=== PATIENT | female | born 1980 | race Caucasian/White ===

== ENCOUNTER → 2018-04-27 10:13 | Outpatient (CLI) | payer BC, SELFPAY ==
[2018-05-01 15:52] LABS: AFP 19.4 ng/mL; Cigarette smoking status non-smoker; GA used in risk estimate Dates estimate; IVF Pregnancy No; Initial or repeat testing Initial testing; Insulin dependent diabetes No; Maternal Weight 268 lbs; Number of Fetuses 1; Physician Phone Number 802-748-7300; Prev Pregnancy w/NTD No; RECOMMENDED FOLLOW UP None.; Results Summary Normal risk
== END ==
PROVIDERS: PCP Family Medicine; Visit Provider Advanced Practice Midwife
DX: Z34.82 Encounter for supervision of other normal pregnancy, second trimester (principal); Z13.79 Encounter for other screening for genetic and chromosomal anomalies
CPT/HCPCS: 36415; 82105

== ENCOUNTER → 2018-04-27 10:15 | Outpatient (CLI) | payer BC, SELFPAY | PROVIDERS: PCP Advanced Practice Midwife; Visit Provider Advanced Practice Midwife | DX: O09.522 Supervision of elderly multigravida, second trimester (principal) ==

== ENCOUNTER 2018-07-20 15:22 | Outpatient (CLI) | payer BC, SELFPAY ==
[2018-07-20 15:59] LABS: HCT 33.3 % (36.0-46.0); HGB 10.9 g/dL (12.0-15.5); Mean Corp. HGB Concentration 32.7 g/dL (32.0-36.0); Mean Corpuscular Hemoglobin 28.8 pg (27.0-33.0); Mean Corpuscular Volume 88.1 fL (80-95); Platelet Count 374 x1000/uL (130-400); RBC 3.78 m/cumm (4.00-5.20); RBC Distribution Width 13.8 % (11.7-14.6)
--- NOTE | 2018-07-24 16:55 | DIABASSESS_ITS ---
email correspondence: 2017 fasting 1 hour B 1 hour L 1 hour S 07/16 77 87 97 128@1.5hr 07/17 94 91 102 134 07/18 Other meter 88 92 108@2hr 09/18 71 Classroom 109@2h 131 07/20 71 Classroom 129 133 07/21 80 64@2hr 126 112 07/22 71 71 85@2hr 106@2hr
== END 2018-07-20 15:42 ==
PROVIDERS: Visit Provider Advanced Practice Midwife
DX: Z34.91 Encounter for supervision of normal pregnancy, unspecified, first trimester (principal)
CPT/HCPCS: 36415; 85027

== ENCOUNTER 2018-09-13 01:16 | Outpatient (CLI) | payer BC, SELFPAY ==
--- NOTE | 2018-09-13 09:01 | DI.US_ITS ---
Many abnormalities cannot be diagnosed. A normal exam does not exclude a congenital anomaly. Radiology No. LMP: Exam Date: 09/13/18 [facility] 8 wks days on 03/01/18 EDC ([facility]) 10/11/18 Confirmed: HISTORY: varsha, efw, gestational diabetes PREDICTED GESTATIONAL AGE NUMBER 36.1 weeks with a range of 35.1 week to 37.1 weeks. 1 Determined by__X_1STUS___LMP___HISTORY Info. pertaining to fetus # PLACENTA PRESENTATION Grade I-II Cephalic__X_ Anterior___Posterior___X Breech____ Right__X___ Left Transverse(head right___ Fundal___Low-lying___Previa___ Transverse(head left___ Varying BIOMETRY AMNIOTIC FLUID BPD: 84 mm 34 weeks Normal HC: 321 mm 36.2 weeks AC: 321 mm 36 weeks FL: 70 mm 36 weeks AMNIOTIC FLUID INDEX >26 WK CRL: mm weeks Cisterna Magna: mm CI: 78 RUQ:___3.9___LUQ__3.2 Cerebellum: cm EFW: 2770 grams 45th Percentile RLQ:__2.5____LLQ___2.0____ Total:___11.6 cms Composite AGE= 35.4 wks EDC by US____10/14/18 BIOPHYSICAL PROFILE ANATOMY IDENTIFIED SCORE 0/2 Heart: 4-Chamber___Rate:BPM_152____ LVOT: RVOT: Amniotic Fluid(>2cms)____ Stomach: Kidneys: Respirations (>30 secs) Bladder: Post. Fossa: Body Flex/Extension 3 vessel cord: Ventricles: cord insertion: Lips:____ Extremity Flex/Extension spinal morphology: Nose: Total Score= Palate: NS=not seen The study was carried out according to the usual protocol. Please see the OB ultrasound worksheet for complete details.
== END 2018-09-13 01:36 ==
PROVIDERS: PCP Internal Medicine Sleep Medicine; Visit Provider Advanced Practice Midwife
DX: O24.419 Gestational diabetes mellitus in pregnancy, unspecified control (principal); Z34.93 Encounter for supervision of normal pregnancy, unspecified, third trimester
CPT/HCPCS: 76816

== ENCOUNTER 2018-09-13 07:45 | Outpatient (CLI) | payer BC, SELFPAY | END 2018-09-13 08:05 | PROVIDERS: PCP Internal Medicine Sleep Medicine; Visit Provider Advanced Practice Midwife | DX: O24.419 Gestational diabetes mellitus in pregnancy, unspecified control (principal); Z3A.36 36 weeks gestation of pregnancy; O09.523 Supervision of elderly multigravida, third trimester | CPT/HCPCS: 59025 ==

== ENCOUNTER 2018-09-13 13:53 | Outpatient (REF) | payer BC, SELFPAY | END 2018-09-13 14:13 | LOC: LBN 13:53 | PROVIDERS: PCP Internal Medicine Sleep Medicine; Visit Provider Advanced Practice Midwife | DX: Z34.93 Encounter for supervision of normal pregnancy, unspecified, third trimester (principal); Z36.85 Encounter for antenatal screening for Streptococcus B | CPT/HCPCS: 87081 ==

== ENCOUNTER 2018-09-17 11:00 | Outpatient (CLI) | payer BC, SELFPAY | END 2018-09-17 11:20 | PROVIDERS: PCP Internal Medicine Sleep Medicine; Visit Provider Obstetrics & Gynecology Gynecology | DX: O24.415 Gestational diabetes mellitus in pregnancy, controlled by oral hypoglycemic drugs (principal); Z3A.36 36 weeks gestation of pregnancy; O09.523 Supervision of elderly multigravida, third trimester | CPT/HCPCS: 59025 ==

== ENCOUNTER 2018-09-20 08:09 | Outpatient (CLI) | payer BC, SELFPAY | END 2018-09-20 08:29 | PROVIDERS: PCP Internal Medicine Sleep Medicine; Visit Provider Advanced Practice Midwife | DX: O24.419 Gestational diabetes mellitus in pregnancy, unspecified control (principal); Z3A.37 37 weeks gestation of pregnancy | CPT/HCPCS: 59025 ==

== ENCOUNTER 2018-09-24 08:00 | Outpatient (CLI) | payer BC, SELFPAY | END 2018-09-24 08:20 | PROVIDERS: PCP Internal Medicine Sleep Medicine; Visit Provider Advanced Practice Midwife | DX: O24.419 Gestational diabetes mellitus in pregnancy, unspecified control (principal) | CPT/HCPCS: 59025 ==

== ENCOUNTER 2018-09-27 09:49 | Outpatient (CLI) | payer BC, SELFPAY | END 2018-09-27 10:09 | PROVIDERS: PCP Internal Medicine Sleep Medicine; Visit Provider Advanced Practice Midwife | DX: O24.419 Gestational diabetes mellitus in pregnancy, unspecified control (principal); Z3A.38 38 weeks gestation of pregnancy | CPT/HCPCS: 59025 ==

== ENCOUNTER 2018-10-01 13:05 | Outpatient (CLI) | payer BC, SELFPAY | END 2018-10-01 13:25 | PROVIDERS: PCP Internal Medicine Sleep Medicine; Visit Provider Obstetrics & Gynecology | DX: O24.419 Gestational diabetes mellitus in pregnancy, unspecified control (principal); Z3A.38 38 weeks gestation of pregnancy | CPT/HCPCS: 59025 ==

== ENCOUNTER 2018-10-05 16:50 | Inpatient (IN) | payer BC, SELFPAY ==
[2018-10-05 19:53] LABS: HGB 11.2 g/dL (12.0-15.5); Mean Corp. HGB Concentration 32.9 g/dL (32.0-36.0); Mean Corpuscular Hemoglobin 28.5 pg (27.0-33.0); Mean Corpuscular Volume 86.5 fL (80-95); Mean Platelet Volume 10.6 fL (8.0-11.0); Platelet Count 363 x1000/uL (130-400); RBC 3.93 m/cumm (4.00-5.20); RBC Distribution Width 14.8 % (11.7-14.6); White Blood Cell Count 12.57 k/cumm (4.4-10.8)
[2018-10-05] MEDS: Zolpidem 10 MG TAB PO (21:12)
[2018-10-06] MEDS: Normal Saline Flush 10 ML SYR IVP ×2 (06:43→13:14)
[2018-10-06] MEDS: glyBURIDE 2.5 MG TAB PO (06:43)
[2018-10-06] MEDS: buPROPion-XL 150 MG TABCR PO (08:06)
[2018-10-06] MEDS: Hamamelis Leaf/Glycerin 100 EACH BOX PR (20:54)
[2018-10-07] MEDS: Acetaminophen 325 MG TAB 650 MG PO (06:21)
[2018-10-07 08:31] LABS: HCT 34.2 % (36.0-46.0); HGB 11.2 g/dL (12.0-15.5); Mean Corp. HGB Concentration 32.7 g/dL (32.0-36.0); Mean Corpuscular Hemoglobin 28.6 pg (27.0-33.0); Mean Corpuscular Volume 87.2 fL (80-95); Mean Platelet Volume 10.7 fL (8.0-11.0); Platelet Count 318 x1000/uL (130-400); RBC 3.92 m/cumm (4.00-5.20); White Blood Cell Count 13.77 k/cumm (4.4-10.8)
[2018-10-07] MEDS: buPROPion-XL 150 MG TABCR PO (09:21)
[2018-10-08] MEDS: buPROPion-XL 150 MG TABCR PO (08:08)
== END 2018-10-08 13:40 | disposition home or self-care (01) | DRG 807 ==
PROVIDERS: Admitting Provider Advanced Practice Midwife; PCP Internal Medicine Sleep Medicine; Visit Provider Advanced Practice Midwife
DX: O24.425 Gestational diabetes mellitus in childbirth, controlled by oral hypoglycemic drugs (principal); Z37.0 Single live birth; O69.81X0 Labor and delivery complicated by cord around neck, without compression, not applicable or unspecified; Z3A.39 39 weeks gestation of pregnancy; O99.824 Streptococcus B carrier state complicating childbirth; O99.214 Obesity complicating childbirth; E66.9 Obesity, unspecified; O99.344 Other mental disorders complicating childbirth; F41.8 Other specified anxiety disorders
CPT/HCPCS: 36415; 85027; 86850; 86900; 86901; J2540; J3490

== ENCOUNTER 2018-11-20 07:48 | Outpatient (CLI) | payer BC, SELFPAY | END 2018-11-20 08:08 | PROVIDERS: PCP Internal Medicine Sleep Medicine; Visit Provider Advanced Practice Midwife | DX: O24.419 Gestational diabetes mellitus in pregnancy, unspecified control (principal); E66.9 Obesity, unspecified | CPT/HCPCS: 36415; 82951; 83036 ==

== ENCOUNTER 2018-12-03 16:03 | Outpatient (REF) | payer BC, SELFPAY ==
[2018-12-05 15:30] LABS: Chlamydia Result Negative; GC Result Negative; Specimen Description CERVIX
== END 2018-12-03 16:23 ==
LOC: LBN 16:03
PROVIDERS: PCP Internal Medicine Sleep Medicine; Visit Provider Advanced Practice Midwife
DX: Z11.3 Encounter for screening for infections with a predominantly sexual mode of transmission (principal); Z30.9 Encounter for contraceptive management, unspecified
CPT/HCPCS: 87491; 87591

== ENCOUNTER 2020-12-09 04:30 | Outpatient (CLI) | payer BC, SELFPAY ==
[2020-12-09 07:54] LABS: Abs Immature Grans 0.01 10^3/uL (0.0-0.06); Absolute Basophil Count 0.05 10^3/uL (0.0-0.2); Absolute Eosinophil Count 0.11 10^3/uL (0.0-0.7); Absolute Lymphocyte Count 2.26 10^3/uL (1.2-3.4); Absolute Monocyte Count 0.48 10^3/uL (0.1-0.8); Absolute Neutrophil Count 4.08 10^3/uL (1.2-6.7); Basophils % 0.7; Eosinophils % 1.6; HCT 37.8 % (36.0-46.0); HGB 12.5 g/dL (11.2-15.7); Immature Grans % 0.1; Lymphocytes % 32.3; MCH 28.5 pg (27.0-33.0); MCHC 33.1 % (32.0-36.0); MCV 86.3 fL (80-95); MPV 9.3 fL (8.0-11.0); Monocytes % 6.9; Neutrophils % 58.4; Nucleated RBC 0 %; Platelet Count 360 10^3/uL (130-400); RBC 4.38 10^6/uL (3.93-5.22); RDW 13.1 % (11.7-14.6); RDW-SD 41.1 fL; WBC 6.99 10^3/uL (4.4-10.8)
[2020-12-09 08:04] LABS: Hemoglobin A1C 5.7 % (<5.7)
[2020-12-09 09:08] LABS: ALT 17 U/L (14-59); AST 11 U/L (15-37); Albumin 3.3 g/dL (3.4-5.0); Alkaline Phosphatase 82 U/L (46-116); Anion Gap 8.6 mmol/L (3-11); BUN 12 mg/dL (7-18); Bilirubin, Total 0.6 mg/dL (0.2-1.0); CO2 25.4 mmol/L (21.0-32.0); CREATININE 0.8 mg/dL (0.55-1.02); Calcium 8.4 mg/dL (8.5-10.1); Calculated LDL 82 mg/dL (<100); Chloride 105 mmol/L (98-107); Cholesterol 139 mg/dL (<200); Glucose 100 mg/dL (74-106); HDL Cholesterol 42 mg/dL (40-60); Potassium 4.2 mmol/L (3.5-5.1); Sodium 139 mmol/L (136-145); TSH (W/Ref FT4) 0.86 uIU/mL (0.36-3.74); Total Protein 7.3 g/dL (6.4-8.2); Triglyceride 75 mg/dL (<150)
== END 2020-12-09 04:31 | disposition home or self-care (01) ==
LOC: LBO 04:30
PROVIDERS: PCP Internal Medicine Sleep Medicine; Visit Provider Family Medicine
DX: F41.9 Anxiety disorder, unspecified (principal); F32.9 Major depressive disorder, single episode, unspecified; R73.02 Impaired glucose tolerance (oral); Z13.220 Encounter for screening for lipoid disorders
CPT/HCPCS: 36415; 80053; 80061; 83036; 84443; 85025

== ENCOUNTER 2022-04-21 16:05 | Outpatient (REF) | payer BC, SELFPAY ==
--- OUTSIDE RECORDS SUMMARY | 2022-04-21 16:10 | XMS_ITS | Encounter Summary ---
:1980 [place] [address] Care Team Providers Name Role Phone Greg Islas MD Primary Care Provider Reason for Visit Reason Onset Date Comments Results 03/30/2016 [place] Encounter Details Date Type Department Care Team Description 03/30/2016 Telephone Obstetrics and Gynecology Federica Sage, Results ([place]) at [facility] [place] [address] OBSTETRICS & [phone] GYNECOLOGY [place], [place] 0[address] (Wo rk) Social History Tobacco Use Types Packs/Day Years Used Date Never Assessed Sex Assigned at Date Recorded Not on file documented as of this encounter Miscellaneous Notes Telephone Encounter - Evelina Sage, MS - 03/30/2016 2:38 PM EDT Vonda was informed of the following are the results from her [place] test. This is a non-invasive test for aneuploidy that analyzes cell- free DNA in maternal blood. Based on a risk cut-off of 1/100 (1%), the detection rate for trisomy 21 is greater than 99%, trisomy 18 97.4% and trisomy 13 is 93.8%. Result: Trisomy 21 Low Risk less than 1/10,000 Trisomy 18 Low Risk less than 1/10,000 Trisomy 13 Low Risk less than 1/10,000 Testing via amniocentesis is required for accurate diagnosis. Kalee was comfortable with these results and understands their limitations. documented in this encounter Plan of Treatment Not on filedocumented as of this encounter Visit Diagnoses Not on filedocumented in this encounter Care Teams Heavy Mobile Equipment Operator Relationship Specialty Start Date End Date Greg Islas MD PCP - General Family Medicine 03/10/16 05/02/18 79 [address] IQBAL, [facility] [address] [place] [id number] documented as of this encounter
--- OUTSIDE RECORDS SUMMARY | 2022-04-21 16:10 | XMS_ITS | Encounter Summary ---
:1980 [place] [address] Care Team Providers Name Role Phone None Primary Care Provider Unavailable Encounter Details Date Type Department Care Team Description 07/20/2018 Hospital Encounter Non-Invasive PschirrHalima marks Insulin c ontrolled Cardiology Lab Josie Rubio MD gestational diabetes [facility] MEDICAL mellitus (GDM) in Hospital CENTER [facility] OBSTETRICS & [facility] [place] [id number] [phone] Social History Tobacco Use Types Packs/Day Years Used Date Never Smoker Smokeless Tobacco: Never Used Sex Assigned at Date Recorded Not on file documented as of this encounter Medications at Time of Discharge Medication Sig Dispensed Refills Start Date End Date FREESTYLE LITE 0 05/18/2018 STRIPSIndications: Insulin controlled gestational diabetes mellitus (GDM) in second trimester FREESTYLE LITE METER 0 03/09/2018 KitIndications: Insulin controlled gestational diabetes mellitus (GDM) in second trimester glyBURIDE (DIABETA) 2.5 mg 0 8 TabletIndications: Insulin controlled gestational diabetes mellitus (GDM) in second trimester FREESTYLE LANCETS 28 gauge 0 8 MiscIndications: Insulin controlled gestational diabetes mellitus (GDM) in second trimester pantoprazole (PROTONIX) 20 mg 0 2017 Tablet, Delayed Release (E.C.)Indications: Insulin controlled gestational diabetes mellitus (GDM) in second trimester 95-iron 0 02/02/2016 gtv-fzbfi-eeb ( + DHA) 28 mg iron-800 mcg-200 mg Combo PackIndications: Insulin controlled gestational diabetes mellitus (GDM) in second trimester ibuprofen (ADVIL;MOTRIN) 800 Three times a day 0 04/05/2013 mg TabletIndications: Insulin controlled gestational diabetes mellitus (GDM) in second trimester magnesium oxide (MAG-OX) 400 Daily 0 016 mg TabletIndications: Insulin controlled gestational diabetes mellitus (GDM) in second trimester vitamin B complex vit C no.3 Daily 0 016 (VITAMIN B COMP AND C NO.3 ORAL)Indications: Insulin controlled gestational diabetes mellitus (GDM) in second trimester documented as of this encounter Plan of Treatment Not on filedocumented as of this encounter Procedures Procedure Name Priority Date/Time Associated Comments Diagnosis ECHOCARDIOGRAM Routine 07/20/2018 12:09 Insulin controll ed Results for this PRF PM EDT gestational procedure are i n diabetes mellitus the result s (GDM) in second section. trimester documented in this encounter Results ECHOCARDIOGRAM PRF (07/20/2018 12:09 PM EDT) Specimen (Source) Anatomical Location Collection Method / Collectio n Time Received Time / Laterality Volume 07/20/2018 Narrative [email or web address] - 07/20/2018 12:42 PM ED T Procedure: ?Pediatric Echocardiogram Patient: ?SCAVITTO VONDA ? (Age): 1980(37y) ? Med Rec#: ? [id number] ?Sex: ?F ? Site Loc: ? [facility] ?Ht / Wt: ??(cm)/ (kg) ? Pt. Loc: ?Echo Lab ? Study Date: ?? 07/20/2018 ?Pt. Type: Study Quality: ? Referring: Halima HOOVER REBECCA Reading: Pradeep Gloria KikeAlexis ([id number]) Diagnosis: *Gestational diabetes mellitus in pregn yasmine, insulin controlled (O24.414) BP: ? / SUMMARY: 1. A echocardiogram was performed at 28 weeks 1 days gestation (CHERI: 10/11/2018) due to maternal diabete s. Fair quality images were obtained. ??The fetus is in vertex posit ion. ?? 2. Levocardia with normal segmental and conotruncal anatomy {S,D,S}. ?? 3. Valve structure and function appear n ormal. 4. Normal chamber dimensions, myocardial appearance, wall thickness, ventricular systolic function. 5. Normal heart rate (142 bpm). No rmal mechanical IL interval (116 ms). The heart rhythm was regular throug hout. 6. No cardiac structural abnormalities w ere identified. ?? 7. No hydrops. 8. No specific or [facility] is required on this basis of this study. 9. The limitations of echocardiogr aphy include the inability to diagnose patent ductus arteriosus, some atrial and ventricular septal defects, minor valve abnormalities and c oarctation. FINDINGS: ? Venous Connections ?There are normal systemic venous c onnections, with the superior and inferior vena cavae returning to the rig ht atrium. Normal spectral Doppler patterns in umbilical vein, duct us venosus, ductus arteriosus, and umbilical artery. ?At least one pulmonary vein from e ach side enters the left atrium. No pulmonary venous anomalies are detect ed. ?? Atrial Septum ?There is a patent foramen ovale (P FO). ?There is qujki-gf-kgsp shunting ac ross the patent foramen ovale with color Doppler. (Normal physiology. ) Av Valves ?The tricuspid valve is functionall y and structurally normal. ?The tricuspid valve diameter measu res 11 mm in the lateral plane obtained from the A4C view. (Z-Score: +1 .49) ?The mitral valve is functionally a nd structurally normal. ?The mitral valve diameter measures 10.3 mm in the lateral plane obtained from the A4C view. (Z-Score: +1 .53) Ventricles ?The right ventricle is of normal s ize. ?The right ventricular systolic fun ction is normal. ?The left ventricular chamber size, wall thickness and systolic function are normal. ?The global left ventricular systol ic function is normal. Ventricular Septum ?The interventricular septum is int act with no evidence of a ventricular septal defect. Semilunar Valves ?The pulmonary valve is normal, wit h normal leaflets, no stenosis or insufficiency. ?The pulmonary valve annulus diamet er measures 6.5 mm. (Z-Score: +1.43) ?The pulmonary valve leaflets are o f normal thickness. ?The aortic valve annulus diameter measures 5.7 mm. (Z-Score: +1.9) ?The aortic valve leaflets are of n ormal thickness. Thoracic Arteries ?The main pulmonary artery is haja l, without dilatation, stenosis, or aneurysm. The great arteries are norm ally related. ?The right pulmonary artery has nor mal size, origin, and configuration. ?The left pulmonary artery has norm al size, origin, and configuration. ?There is a patent ductus arteriosu s. ?There is ggmti-lu-fnae shunting ac ross the patent ductus arteriosus with color Doppler. (Normal physio logy.) ?The ascending aorta is normal, wit hout dilatation or narrowing. ?The ascending aorta diameter measu res 5.7 mm from the long axis view. (Z-Score: +0.88) ?The aortic arch is normal, without dilatation, aneurysm or coarctation. The aortic isthmus is haja l sized. ?The aortic isthmus diameter measur es 3.4 mm distal to the left subclavian artery. (Z-Score: +0.07) ?The descending aorta is normal, wi thout dilatation, narrowing or aneurysm. Effusion ?There is no pericardial effusion. ?No evidence of hydrops. Mitral Valve ?Value ?Units (Range) ? Z Score ? MV diam (lateral) 4C10.3 ? mm ? Tricuspid Valve ?Value ?Units (Range) ? Z Score ? TV diam (lateral) 4C11 ? mm ? Pulmonary Valve / RV ?Value ?Units (Range) ? Z Score ? PV kwaku diam 2D ?6.5 ?mm ? Aorta ?Value ?Units (Range) ? Z Score ? AV kwaku diam 2D ?5.7 ?mm ? Asc Ao diam (LAX) ?? 5.7 ?mm ? Isthmus diam (SSN) ??3.4 ?mm ? All Z scores are estimated This report has been electronically sign ed by: _ Gloria Fernández MD ? 07/20/2018 12 :42:26 Images reviewed and interpretation verif ied [facility] Cardiac Ultrasound Laboratory Procedure Note Gloria Fernández MD - 07/20/2018Formatt ing of this note might be different from the original. Procedure: Pediatric Echocardiogram Patient: HERLINDA BERRIOS DOB(Age): [birth year]37y) Med Rec#: [id number] Sex: F Site Loc: [facility] Ht / Wt: (cm)/ (kg) Pt. Loc: Echo Lab Study Date: 07/20/2018 Pt. Type: Study Quality: Referring: Halima HOOVER REBECCA Reading: Gloria Fernández ([id number]) Diagnosis: *Gestational diabetes mellitus in pregn yasmine, insulin controlled (O24.414) BP: / SUMMARY: 1. A echocardiogram was performed at 28 weeks 1 days gestation (CHERI: 10/11/2018) due to maternal diabete s. Fair quality images were obtained. The fetus is in vertex positio n. 2. Levocardia with normal segmental and conotruncal anatomy {S,D,S}. 3. Valve structure and function appear n ormal. 4. Normal chamber dimensions, myocardial appearance, wall thickness, ventricular systolic function. 5. Normal heart rate (142 bpm). No rmal mechanical IL interval (116 ms). The heart rhythm was regular throug hout. 6. No cardiac structural abnormalities w ere identified. 7. No hydrops. 8. No specific or car diac follow-up is required on this basis of this study. 9. The limitations of echocardiogr aphy include the inability to diagnose patent ductus arteriosus, some atrial and ventricular septal defects, minor valve abnormalities and c oarctation. FINDINGS: Venous Connections There are normal systemic venous connec tions, with the superior and inferior vena cavae returning to the rig ht atrium. Normal spectral Doppler patterns in umbilical vein, duct us venosus, ductus arteriosus, and umbilical artery. At least one pulmonary vein from each s jordi enters the left atrium. No pulmonary venous anomalies are detect ed. Atrial Septum There is a patent foramen ovale (PFO). There is npgcb-gy-zwba shunting across the patent foramen ovale with color Doppler. (Normal physiology. ) Av Valves The tricuspid valve is functionally and structurally normal. The tricuspid valve diameter measures 1 1 mm in the lateral plane obtained from the A4C view. (Z-Score: +1 .49) The mitral valve is functionally and st ructurally normal. The mitral valve diameter measures 10.3 mm in the lateral plane obtained from the A4C view. (Z-Score: +1 .53) Ventricles The right ventricle is of normal size. The right ventricular systolic function is normal. The left ventricular chamber size, wall thickness and systolic function are normal. The global left ventricular systolic fu nction is normal. Ventricular Septum The interventricular septum is intact w ith no evidence of a ventricular septal defect. Semilunar Valves The pulmonary valve is normal, with nor mal leaflets, no stenosis or insufficiency. The pulmonary valve annulus diameter me asures 6.5 mm. (Z-Score: +1.43) The pulmonary valve leaflets are of nor mal thickness. The aortic valve annulus diameter measu res 5.7 mm. (Z-Score: +1.9) The aortic valve leaflets are of normal thickness. Thoracic Arteries The main pulmonary artery is normal, wi thout dilatation, stenosis, or aneurysm. The great arteries are norm ally related. The right pulmonary artery has normal s ize, origin, and configuration. The left pulmonary artery has normal si ze, origin, and configuration. There is a patent ductus arteriosus. There is xbqbb-my-bsuw shunting across the patent ductus arteriosus with color Doppler. (Normal physio logy.) The ascending aorta is normal, without dilatation or narrowing. The ascending aorta diameter measures 5 .7 mm from the long axis view. (Z-Score: +0.88) The aortic arch is normal, without dila tation, aneurysm or coarctation. The aortic isthmus is haja l sized. The aortic isthmus diameter measures 3. 4 mm distal to the left subclavian artery. (Z-Score: +0.07) The descending aorta is normal, without dilatation, narrowing or aneurysm. Effusion There is no pericardial effusion. No evidence of hydrops. Mitral Valve Value Units (Range) Z Score MV diam (lateral) 4C10.3 mm Tricuspid Valve Value Units (Range) Z Score TV diam (lateral) 4C11 mm Pulmonary Valve / RV Value Units (Range) Z Score PV kwaku diam 2D 6.5 mm Aorta Value Units (Range) Z Score AV kwaku diam 2D 5.7 mm Asc Ao diam (LAX) 5.7 mm Isthmus diam (SSN) 3.4 mm All Z scores are estimated This report has been electronically sign ed by: _ Gloria Fernández MD 07/20/2018 12:42:26 Images reviewed and interpretation verif ied [facility] Cardiac Ultrasound Laboratory E Joanne Hoover MD ECHO ORDERABLES Performing Organization Address City/State/ZIP Code Phon e Number [facility] documented in this encounter Visit Diagnoses Diagnosis Insulin controlled gestational diabetes mellitus (GDM) in second trimester documented in this encounter Care Teams Records And Information Manager Relationship Specialty Start Date End Date None PCP - General 05/03/18 None documented as of this encounter
--- OUTSIDE RECORDS SUMMARY | 2022-04-21 16:10 | XMS_ITS | Encounter Summary ---
:1980 Author Organization [place] [address] Care Team Providers Name Role Phone Greg Islas MD Primary Care Provider Reason for Visit Reason Onset Date Comments Results 03/24/2016 Encounter Details Date Type Department Care Team Description 03/24/2016 Telephone Obstetrics and Gynecology at [facility] Kemal hernandez LGC Results [facility] OBSTETRICS [place] [address] [place] [address] [phone] (Wo rk) Social History Tobacco Use Types Packs/Day Years Used Date Never Assessed Sex Assigned at Date Recorded Not on file documented as of this encounter Miscellaneous Notes Telephone Encounter - Kemal Cerrato LGC - 03/24/2016 5:25 PM EDT Genetic Counseling Telephone Note I met with Vonda Taylor on 03/10/2016 due to advanced maternal age. Vonda opted for the [place] Test. Today, I informed her that a result was not obtained because the sample did not meet thresholds for software quality tester. I offered her a redraw. She would like to come in tomorrow. 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 documented in this encounter Plan of Treatment Not on filedocumented as of this encounter Visit Diagnoses Not on filedocumented in this encounter Care Teams Change Director Relationship Specialty Start Date End Date Greg Islas MD PCP - General Family Medicine 03/10/16 05/02/18 79 FRANKIE IQBAL, [address] [place] [id number] documented as of this encounter
--- OUTSIDE RECORDS SUMMARY | 2022-04-21 16:10 | XMS_ITS | Encounter Summary ---
:1980 Author Organization [facility] Address [facility] [address] [place] [id number] Care Team Providers Name Role Phone Greg Islas MD Primary Care Provider Encounter Details Date Type Department Care Team Description 03/25/2016 Orders Only Obstetrics and Kemal Cerrato, Materna l age 35+, Gynecology at [facility] primigravida, [facility] (Primary Dx) [place] [address] OBSTETRICS & [phone] GYNECOLOGY [place] [id number] Social History Tobacco Use Types Packs/Day Years Used Date Never Assessed Sex Assigned at Date Recorded Not on file documented as of this encounter Plan of Treatment Not on filedocumented as of this encounter Results Miscellaneous Lab request (03/25/2016 10:11 AM EDT) [facility] Method Time Signature [facility] Lab Request CARLOS SHRESTHA Result received in [facility]. [facility] Specimen Anatomical Collection Method Collection Time Receive d Time (Source) Location / / Volume Laterality Blood specimen 03/25/2016 10:11 6 (specimen) AM EDT 11:03 AM EDT Resulting Agency Comment Spec In Lab Ember Moran MD HEMATOLOGY ORDERABLES Performing Organization Address City/State/ZIP Code Phon e Number [place] [address] documented in this encounter Visit Diagnoses Diagnosis Maternal age 35+, primigravida, first tr imester - Primary documented in this encounter Care Teams Sales Development Specialist Relationship Specialty Start Date End Date Greg Islas MD PCP - General Family Medicine 03/10/16 05/02/18 79 FRANKIE IQBAL, [address] [place] [id number] documented as of this encounter
--- OUTSIDE RECORDS SUMMARY | 2022-04-21 16:10 | XMS_ITS | Clinical Summary ---
:1980 Author Organization [facility] [address] Care Team Providers Name Role Phone None Primary Care Provider Unavailable Allergies Active Allergy Reactions Severity Noted Date Comments Cephalexin Monohydrate 02/08/2016 Other reaction(s): cephalexin monohydrate Phenylpropanolamine 02/08/2016 Other re action(s): phenylpropanola mine Shellfish Derived 02/08/2016 Other reac tion(s): shellfish derived Medications Medication Sig Dispensed Refills Start Date End Date Status FREESTYLE LITE 0 05/18/2018 Acti ve STRIPSIndications: Insulin controlled gestational diabetes mellitus (GDM) in second trimester FREESTYLE LITE METER 0 03/09/2018 Active KitIndications: Insulin controlled gestational diabetes mellitus (GDM) in second trimester glyBURIDE (DIABETA) 2.5 0 05/10/2018 Active mg TabletIndications: Insulin controlled gestational diabetes mellitus (GDM) in second trimester FREESTYLE LANCETS 28 0 03/09/2018 Active gauge MiscIndications: Insulin controlled gestational diabetes mellitus (GDM) in second trimester pantoprazole (PROTONIX) 0 04/27/2018 Active 20 mg Tablet, Delayed Release (E.C.)Indications: Insulin controlled gestational diabetes mellitus (GDM) in second trimester 95-iron 0 02/02/2016 Ac tive whj-cmwoa-vvs ( + DHA) 28 mg iron-800 mcg-200 mg Combo PackIndications: Insulin controlled gestational diabetes mellitus (GDM) in second trimester ibuprofen (ADVIL;MOTRIN) Three times a 0 04/05/2013 Active 800 mg day TabletIndications: Insulin controlled gestational diabetes mellitus (GDM) in second trimester magnesium oxide (MAG-OX) Daily 0 02/08/2016 Active 400 mg TabletIndications: Insulin controlled gestational diabetes mellitus (GDM) in second trimester vitamin B complex vit C Daily 0 02/08/2016 Active no.3 (VITAMIN B COMP AND C NO.3 ORAL)Indications: Insulin controlled gestational diabetes mellitus (GDM) in second trimester Active Problems No known active problems Family History Medical History Relation Comments Anxiety Disorder Brother Asthma Brother Autism Spectrum Disorder Brother Asperger Schizophrenia Brother Anxiety Disorder Father Asthma Father Autism Spectrum Disorder Father Asperger Diabetes Father Heart Disease Father Myocardial Infarction Father Anxiety Disorder Sister Migraines Sister Relation Status Comments Brother Father Sister Social History Tobacco Use Types Packs/Day Years Used Date Never Smoker Smokeless Tobacco: Never Used Sex Assigned at Date Recorded Not on file Last Filed Vital Signs Vital Sign Reading Time Taken Comments Blood Pressure 122/64 05/22/2018 8:37 AM EDT Pulse - - Temperature - - Respiratory Rate - - Oxygen Saturation - - Inhaled Oxygen Concentration - - Weight 118.6 kg (261 lb 8 oz) 05/22/2018 8:37 AM EDT Height - - Body Mass Index - - Plan of Treatment Health Maintenance Due Date Last Done Comments Covid-19 Vaccine (#1) 1985 HIV screen 1998 Hepatitis C Screening 1998 Tdap adult 1999 Tetanus vaccine 1999 HPV test 2010 PAP Smear 2010 Breast Cancer Share Decision Needed 2020 Influenza (Flu) vaccine (1 of 1 - Influenza standard 05/19/2022 series) Care Teams Soil Analyst Relationship Specialty Start Date End Date None PCP - General 05/03/18 None
--- OUTSIDE RECORDS SUMMARY | 2022-04-21 16:10 | XMS_ITS | Encounter Summary ---
:1980 Author Organization [facility] [place] [address] Care Team Providers Name Role Phone None Primary Care Provider Unavailable Reason for Visit Reason Comments Maternal Condition Encounter Details Date Type Department Care Team Description 07/20/2018 Office Visit Pediatric Cardiology Gloria Fernández Ge stationjulián diabetes at [facility] MD mellitus (GDM) in [address] third trimester [place], [place] [address] hypoglycemic drug [id number] [phone] Social History Tobacco Use Types Packs/Day Years Used Date Never Smoker Smokeless Tobacco: Never Used Sex Assigned at Date Recorded Not on file documented as of this encounter Progress Notes Gloria Fernández MD - 07/20/2018 11:00 AM EDT Cardiology Clinic Primary OB provider: Saira Casillas CNM Indication for Evaluation: Patient history: I was asked by to see Vonda Taylor for advice regarding cardiac risk associated with . Vonda is a 37 y.o. female who is currently at 28 1/7 weeks gestation based on an EDC of 10/11/18.She states that she was diagnosed with gestational diabetes at 8 weeks gestation and is currently maintained on glyburide. Cell free DNA testing was low risk. She was evaluated by Dr. Hoover at 19 weeks gestation. anatomy appeared normal on ultrasound. She denies any other complications. She plans to deliver at [facility]. Medications: Current Outpatient Medications on File Prior to Visit Medication Sig Dispense Refill ??? FREESTYLE LITE STRIPS ??? FREESTYLE LITE METER Kit ??? glyBURIDE (DIABETA) 2.5 mg Tablet ??? FREESTYLE LANCETS 28 gauge Misc ??? pantoprazole (PROTONIX) 20 mg Tablet, Delayed Release (E.C.) ??? 95-iron axi-seymn-jiz ( + DHA) 28 mg iron-800 mcg-200 mg Combo Pack ??? ibuprofen (ADVIL;MOTRIN) 800 mg Tablet Three times a day ??? magnesium oxide (MAG-OX) 400 mg Tablet Daily ??? vitamin B complex vit C no.3 (VITAMIN B COMP AND C NO.3 ORAL) Daily No current facility-administered medications on file prior to visit. Past Medical History: gestational diabetes, she denies any further chronic medical conditions Family Medical History: No known family history of congenital heart disease, other defects or genetic syndromes. Social History: to Tobin who is 41 yo. They have a 22 mo son Alex. 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 She denies tobacco use. echocardiogram results: A complete echocardiogram was performed today which demonstrates: ?? Single intrauterine with levocardia, visceral situs solitus, [S,D,S] normal segmental anatomy with normal chamber dimensions. ?? heart rate was 142 bpm and the AV interval was 116 ms. Normal rhythm throughout. ?? The tricuspid valve appears normal. There is no evidence of tricuspid insufficiency. ?? The mitral valve appears normal. There is no evidence of mitral regurgitation. ?? Qualitatively, there is normal biventricular size and shortening. ?? No evidence of pulmonary stenosis or insufficiency. ?? No evidence of aortic stenosis or insufficiency. ?? Flow across the aortic arch appears unobstructed with no evidence of coarctation of the aorta. ?? Ductus arteriosus with nonrestricted right to left flow. ?? Moderate size foramen ovale with right to left flow. ?? No evidence of a VSD. ?? No evidence of a pericardial effusion. ? Normal umbilical artery and umbilical vein flow patterns. Normal flow pattern in the ductus venosus. ?? See full report for further details. Diagnosis: 37 y.o. female at 28 1/7 weeks gestation Maternal gestational diabetes No evidence of a cardiac abnormality on echocardiogram today Recommendation: ? I have reviewed normal cardiac anatomy with Vonda and relayed that I see no evidence ofa major structural cardiac abnormality on my imaging today. We have reviewed the cardiac complications which are associated with a maternal history of diabetes. These complications include an increased risk of structural heart defects in 25 out of 1000 infants (risk is 8 in 1000 in the general population) as well as biventricular hypertrophy which can arise in approximately 25-30% of cases. This is usually a transient disorder which resolves over the first 6 months of life, however in rare cases may cause hemodynamic compromise after . ??? I have also relayed that echocardiography may not be able to detect certain septal defects, coarctation of the aorta, or subtle valve abnormalities, nor can it predict the persistence of structures related to circulation such as a patent foramen ovale or a patent ductus arteriosus. Therefore, if there is any suspicion of a cardiac abnormality after , further evaluation would be warranted. Otherwise no specific Cardiology follow up for the child is needed. ??? Vonda does not require further follow up in our clinic unless additional concerns arise. I appreciate the opportunity to participate in the care of this patient. Please feel free to contactme for any further questions or concerns. Total visit time was 30 minutes with more than 50 percent of the time spent in counseling to discussnormal cardiac anatomy and physiology, review of today's echocardiogram results and review of those findings which can and cannot be prenatally detected as described above. documented in this encounter Plan of Treatment Not on filedocumented as of this encounter Visit Diagnoses Diagnosis Gestational diabetes mellitus (GDM) in t hird trimester controlled on oral hypoglycemic drug documented in this encounter Care Teams Detective Automobile Section Relationship Specialty Start Date End Date None PCP - General 05/03/18 None documented as of this encounter
--- OUTSIDE RECORDS SUMMARY | 2022-04-21 16:10 | XMS_ITS | Encounter Summary ---
:1980 Author Organization [facility] [place] [address] Care Team Providers Name Role Phone None Primary Care Provider Unavailable Reason for Visit Reason Comments Follow-up Consultation (Routine) - Closed Specialty Diagnoses / Procedures Referred By Contact Refer red To Contact Obstetrics and Diagnoses MATERNAL AGE, OBESITY,GDM Geovanna Casillas CNM [facility] Color Tester 5l Gynecology [address] [place] [place] [address] [address] [place] [phone] Phone: Fax: Referral ID Status Reason Start Date Expiration Date Visits Requ ested Visits Authorized [id number] Closed 04/09/2018 04/09/2019 2 2 Encounter Details Date Type Department Care Team Description 05/22/2018 Procedure visit Obstetrics and Pschirrer, E Insulin co ntrolled gestational diabetes mellitus (GDM) in second trimester; Gynecology at [facility] MD Joanne Encounter of female for testing for gene tic disease carrier status for procreative management; [facility] AMA (adva nced maternal age) multigravida 35+, second trimester [address] [facility] & [phone] GYNECOLOGY [phone] [place] [address] Social History Tobacco Use Types Packs/Day Years Used Date Never Smoker Smokeless Tobacco: Never Used Sex Assigned at Date Recorded Not on file documented as of this encounter Last Filed Vital Signs Vital Sign Reading Time Taken Comments Blood Pressure 122/64 05/22/2018 8:37 AM EDT Pulse - - Temperature - - Respiratory Rate - - Oxygen Saturation - - Inhaled Oxygen Concentration - - Weight 118.6 kg (261 lb 8 oz) 05/22/2018 8:37 AM EDT Height - - Body Mass Index - - documented in this encounter Progress Notes Halima Araujo MD - 05/22/2018 11:00 AM EDT Diagnosis/Maternal Medicine Consult Note Vonda Taylor is a 37 y.o. year old female who is at 19w5d gestation. She is seen in consultation at the request of Geovanna Casillas CNM for evaluation due to advanced maternal age. She previously opted for cell free DNA screening, which revealed a low risk of aneuploidy (<1:10,000 for trisomies 21, 18 and 13). She presents today for ultrasound evaluation and genetic counseling with Taylor De Souza MS. Review of Systems Constitutional:feels well Movement: normal Contractions: none Leaking: None Bleeding: None I reviewed the patient's medical, surgical and family history and updated it as appropriate. I also reviewed and updated as appropriate her allergies and medications. I reviewed her record andultrasound reports to date. Ultrasound Date: 05/22/2018 Amniotic fluid volume normal Presentation variable Placenta anterior Growth appropriate for gestational age anatomy appears within normal limits. Physical Exam BP 122/64 Wt 118.6 kg (261 lb 8 oz) LMP 01/04/2018 General: alert, well appearing, in no apparent distress, oriented to person, place and time HEENT: normocephalic, atraumatic Abdomen: Soft, non-tender, gravid Neurologic:alert, oriented, normal speech, no focal findings or movement disorder noted Psychiatric: Affect is Appropriate. Assessment and Recommendations: 37 y.o. year old female at 19w5d weeks gestation, referred for survey due to advance maternal age. Low risk NIPT and normal appearing survey. The patient declined further testing. Due to first trimester diagnosis of gestational diabetes, I recommend daily low dose aspirin, as well as echocardiogram at 22 - 24 weeks. I appreciate the opportunity to be involved in this patients care, and am available if further questions should arise. Halima ARAUJO MD 05/22/2018 Cc: Geovanna Casillas CNM [address] [place] [address] , with copy of ultrasound report documented in this encounter Plan of Treatment Not on filedocumented as of this encounter Procedures Procedure Name Priority Date/Time Associated Diagnosis Comme nts SPINAL MUSCULAR Routine 05/22/2018 11:36 AM Encounter of femal e Results for this ATROPHY EDT for testing for procedure ar e in genetic disease the results carrier status for section. procreative management documented in this encounter Results ECHOCARDIOGRAM PRF (07/20/2018 12:09 PM EDT) Specimen (Source) Anatomical Location Collection Method / Collectio n Time Received Time / Laterality Volume 07/20/2018 Narrative [facility] - 07/20/2018 12:42 PM ED T Procedure: ?Pediatric Echocardiogram Patient: ?SCAVITTO VONDA ? (Age): 1980(37y) ? Med Rec#: ? [id number] ?Sex: ?F ? Site Loc: ? [facility] ?Ht / Wt: ??(cm)/ (kg) ? Pt. Loc: ?Echo Lab ? Study Date: ?? 07/20/2018 ?Pt. Type: Study Quality: ? Referring: Halima ARAUJO REBECCA Reading: Gloria Fernández ([id number]) Diagnosis: *Gestational diabetes mellitus in pregn yasmine, [...] heart rate (142 bpm). No rmal mechanical LA interval (116 ms). The heart rhythm was [...] patent foramen ovale (P FO). ?There is gimcf-zz-yeqw shunting ac ross the patent foramen ovale [...] a patent ductus arteriosu s. ?There is ppxjc-yk-ehmz shunting ac ross the patent ductus arteriosus [...] :42:26 Images reviewed and interpretation verif ied [facility] Cardiac Ultrasound Laboratory Procedure Note Gloria Fernández MD - 07/20/2018Formatt ing of this note might be different from the original. Procedure: Pediatric Echocardiogram Patient: HERLINDA SAMSON(Age): [birth year]37y) Med Rec#: [id number] Sex: F Site Loc: [facility] Ht / Wt: (cm)/ (kg) Pt. Loc: Echo Lab Study Date: 07/20/2018 Pt. Type: Study Quality: Referring: Halima ARAUJO REBECCA Reading: Gloria Fernández ([id number]) Diagnosis: *Gestational diabetes mellitus in pregn yasmine, [...] heart rate (142 bpm). No rmal mechanical LA interval (116 ms). The heart rhythm was [...] a patent foramen ovale (PFO). There is xgnzt-sz-yxlu shunting across the patent foramen ovale with [...] is a patent ductus arteriosus. There is kczna-yb-ynlp shunting across the patent ductus arteriosus with [...] been electronically sign ed by: _ Gloria Fernádnez MD 07/20/2018 12:42:26 Images reviewed and interpretation verif ied [facility] Cardiac Ultrasound Laboratory E Joanne Araujo MD ECHO ORDERABLES Performing Organization Address City/State/ZIP Code Phon e Number [facility] Spinal Muscular Atrophy (05/22/2018 11:36 AM EDT) [facility] gist Method Time Signature Spinal See Scan [facility] LABORATORY Comment: Test performed by [facility], [address] [place] [address] Specimen Anatomical Collection Method Collection Time Receive d Time (Source) Location / / Volume Laterality Blood specimen 05/22/2018 11:36 8 1:02 (specimen) AM EDT PM EDT Narrative This result has an attachment that is no t available. Resulting Agency Comment Spec In Lab E Joanne Araujo MD CHEMISTRY ORDERABLES Performing Organization Address City/State/ZIP [place] [address] documented in this encounter Visit Diagnoses Diagnosis Insulin controlled gestational diabetes mellitus (GDM) in second trimester Encounter of female for testing for gene tic disease carrier status for procreative management Testing of female for genetic disease ca rrier status AMA (advanced maternal age) multigravida 35+, second trimester Insulin controlled gestational diabetes mellitus (GDM) in second trimester documented in this encounter Care Teams Compliance Specialist Relationship Specialty Start Date End Date None PCP - General 05/03/18 None documented as of this encounter
--- OUTSIDE RECORDS SUMMARY | 2022-04-21 16:10 | XMS_ITS | Encounter Summary ---
:1980 Author Organization [facility] [place] [address] Care Team Providers Name Role Phone Greg Islas MD Primary Care Provider Reason for Visit Reason Comments Advanced Maternal Age [age] years old at [facility] Consultation (Routine) - Closed Specialty Diagnoses / Procedures Referred By Contact Refer red To Contact Genetics / Obstetrics Diagnoses MATERNAL AGE Sonja, Geovanna Dasilva, CNM [facility] 5l and Gynecology Procedures GENETIC CONSULT [address] [place] [address] [place] [phone] Phone: Fax: Referral ID Status Reason Start Date Expiration Date Visits Requ ested Visits Authorized [id number] Closed 02/26/2016 02/25/2017 1 1 Encounter Details Date Type Department Care Team Description 03/10/2016 Office Visit Obstetrics and Kemal Cerrato, Materna l age 35+, primigravida, first trimester; Gynecology at [facility] Encounter for genetic counseling [facility] [address] [place] [facility]ICS & [phone] GYNECOLOGY [phone] [place], [place] [address] Social History Tobacco Use Types Packs/Day Years Used Date Never Assessed Sex Assigned at Date Recorded Not on file documented as of this encounter Progress Notes Kemal Cerrato, [facility] - 03/10/2016 2:06 PM EDT Genetic Counseling Note Vonda Taylor is a 35 y.o. female currently at 11w0d gestation. She was referred to the Diagnosis Program by Geovanna Casillas CNM. I met with Vonda for a 60 minute genetic counseling visit. She was accompanied to the visit by her , Tobin Taylor. Chief Complaint Patient presents with ??? Advanced Maternal Age [age] years old at [facility] Past Medical History Diagnosis Date ??? Anxiety ??? Depression ??? Gallstones ??? Migraine ??? Myopia ??? Obesity ??? Rheumatoid arthritis Family History Problem (# of Occurrences) Relation (Name,Age of Onset) Anxiety Disorder (3) Father, Sister, Brother Asthma (2) Father, Brother Autism Spectrum Disorder (2) Father: Asperger, Brother: Asperger Diabetes (1) Father Heart Disease (1) Father Migraines (1) Sister Myocardial Infarction (1) Father (62) Schizophrenia (1) Brother The reported family history was otherwise unremarkable for intellectual disability, congenital anomalies, recurrent loss, or known genetic conditions. Obstetric History T0 TAB0 SAB0 E0 M0 L0 # Outcome Date GA Lbr Eric/2nd Weight Sex Delivery Anes PTL Lv 1 Current Patient's last menstrual period was 12/24/2015. Estimated Date of Delivery: 09/29/2016 based on menstrual dating and confirmed by ultrasound (7w2d on02/17/2016). Assessment 1. Aneuploidy screening: Advancing maternal age is associated with an increased rate of aneuploidy due to chromosome missegregation. At Vonda's current age, the first trimester risks for trisomy 21 (Down syndrome), trisomy 18, and trisomy 13 are about 1 in 200, 1 in 1000, and 1 in 2700, respectively.The risk for XXY (Klinefelter syndrome) or XXX is around 1 in 1000. We discussed the benefits, risks, and limitations of screening and diagnostic testing for aneuploidy. Vonda would like to have a screening test at this time. We are offering the Pace Test, which is a type of cell- free DNA screening, to women of advanced maternal age. The Pace Test provides a risk score for trisomy 21, trisomy 18, and trisomy 13; screening for sex chromosome aneuploidy is optional. We discussed the sensitivity and specificity of the test for each condition. Vonda opted for the Pace Test without sex chromosome aneuploidy screening. She declined to have the sex reported. Results are expected in 1-2 weeks. 2. Neural tube defect screening: We discussed the benefits and limitations of screening for neural tube defects by maternal serum AFP screening, morphology ultrasound, or both. Vonda will give further consideration to maternal serum AFP screening. This test may be done locally, ideally at 16-18 weeks. 3. Carrier screening: Vonda is of [place] and [place] ancestry. Tobin is of [place] and [place] ancestry. We discussed the options of cystic fibrosis and Lisandro-Sachs carrier screening. The cystic fibrosis carrier frequency is about 1 in 25 in the population, which gives this couple a 1 in 2500 risk of having an affected child. The Lisandro-Sachs carrier frequency is about 1 in 73 in the [place] population and about 1 in 300 in the general population, which gives this couple less than a 1 in 87,000 risk of having an affected child. After considering the benefits and limitations, Vonda declined cystic fibrosis and Lisandro-Sachs carrier screening. Vonda's MCV is not available for review. If it is low, further screening for thalassemia should be considered. Vonda has a family history of autism spectrum disorder (Asperger). We discussed the benefits and limitations of carrier screening for fragile X syndrome. Vonda declined this test. Plan Vonda will have her blood drawn today for the Pace Test. I will call her when the results are available. documented in this encounter Plan of Treatment Not on filedocumented as of this encounter Results Miscellaneous Lab request (03/10/2016 2:16 PM EDT) [facility] Method Time Signature [facility] Lab Request CARLOS SHRESTHA Result received in [facility] Specimen Anatomical Collection Method Collection Time Receive d Time (Source) Location / / Volume Laterality Blood specimen 03/10/2016 2:16 PM 016 3:01 (specimen) EDT PM EDT Resulting Agency Comment Spec In Lab Ember Moran MD HEMATOLOGY ORDERABLES Performing Organization Address City/State/ZIP Code Phon [place] [address] documented in this encounter Visit Diagnoses Diagnosis Maternal age 35+, primigravida, first tr imester Encounter for genetic counseling Genetic counseling documented in this encounter Care Teams An/Sqq 89(V)15 Sonar System Journeyman Relationship Specialty Start Date End Date Greg Islas MD PCP - General Family Medicine 03/10/16 05/02/18 [address] [place] [address] documented as of this encounter
--- OUTSIDE RECORDS SUMMARY | 2022-04-21 16:10 | XMS_ITS | Encounter Summary ---
:1980 [place] [address] Care Team Providers Name Role Phone Greg Islas MD Primary Care Provider Encounter Details Date Type Department Care Team Description 03/25/2016 Laboratory Appointment Lab 3L [facility] Kelsie Maternal age 35+, [facility] primigravida, [facility] trimester [place] [phone] Social History Tobacco Use Types Packs/Day Years Used Date Never Assessed Sex Assigned at Date Recorded Not on file documented as of this encounter Plan of Treatment Not on filedocumented as of this encounter Procedures Procedure Name Priority Date/Time Associated Comments Diagnosis MISCELLANEOUS LAB Routine 03/25/2016 10:11 Maternal age 35+, R esults for this REQUEST AM EDT primigravida, first procedur e are in trimester the results section. documented in this encounter Results Miscellaneous Lab request (03/25/2016 10:11 AM EDT) [facility] Method Time Signature Misc Lab Request CARLOS SHRESTHA Result received in [facility] LABORATORY Specimen Anatomical Collection Method Collection Time Receive d Time (Source) Location / / Volume Laterality Blood specimen 03/25/2016 10:11 6 (specimen) AM EDT 11:03 AM EDT Resulting Agency Comment Spec In Lab Ember Moran MD HEMATOLOGY ORDERABLES Performing Organization Address City/State/ZIP Code Phon e Number [facility] [place] [address] documented in this encounter Visit Diagnoses Diagnosis Maternal age 35+, primigravida, first tr imester documented in this encounter Care Teams Rat Exterminator Relationship Specialty Start Date End Date Solnit, Greg D, MD PCP - General Family Medicine 03/10/16 05/02/18 [address] [place] [id number] documented as of this encounter
--- OUTSIDE RECORDS SUMMARY | 2022-04-21 16:10 | XMS_ITS | Encounter Summary ---
:1980 Author Organization [facility] [place] [address] Care Team Providers Name Role Phone None Primary Care Provider Unavailable Encounter Details Date Type Department Care Team Description 05/22/2018 Hospital En[place] [facility] [place]armila Wilkinson, Elderly multigravida with an tepartum condition or complication; [facility] CNM Gestational diabetes mellitus (GDM) in s econd trimester, gestational diabetes method of control unspecified; [address] Maternal obesity syndrome in second trim [facility] , [address] [place] [address] [phone] Social History Tobacco Use Types Packs/Day Years [...] (GDM) in second trimester 95-iron 0 02/02/2016 [id number]-vysso-ztp ( + DHA) 28 mg iron-800 mcg-200 [...] Name Priority Date/Time Associated Diagnosis Comme nts US OB DETAILED Routine 05/22/2018 11:05 Elderly multigravida R esults for this MORPHOLOGY AM EDT with antepartum procedure ar e in condition or the results complication section. Gestational diabetes mellitus (GDM) in second trimester, gestational diabetes method of control unspecified Maternal obesity syndrome in second trimester documented in this encounter Results US OB Detailed Morphology (05/22/2018 11:05 AM EDT) Anatomical Region Laterality Modality Pelvis, Abdomen Ultrasound Specimen (Source) Anatomical Collection Method Collection Time Re ceived Time Location / / Volume Laterality 05/22/2018 10:00 AM EDT Impressions 05/22/2018 11:21 AM EDT 2nd Trimester - Detailed Morphology - S ummary Single intrauterine with a ge stational age of 19w 5d based on LMP ??(01/04/18). Composite age based on the current ultr asound alone is 19w 6d. Current growth parameters are consisten t with prior dating indicating normal growth. Amniotic fluid volume is appropriate fo r gestational age. Detailed anatomic evaluation was performed and no structural abnormalities are noted. Visualization limited due to maternal b danielito habitus (BMI = ??42.12). ? Halima Hoover MD Electronically Signed Final Report ?? 11:20 am Narrative 05/22/2018 11:21 AM EDT OBSTETRICS REPORT ? (Signed Final 05/22/2018 11:20 am) PATIENT INFO: ID #: ? [id number] ?: ??[birth year] (37 yrs) Name: ? VONDA PATE ?Visit Date: 05/22/2018 10:00 am PERFORMED BY: Performed By: ? Bruna Mae RDMS Attending: ?Halima Hoover MD ? ?Joanne Referred By: ?SHARMILA WILKINSON Location: ? [place] SERVICE(S) PROVIDED: ??[facility] - Detailed Morphology - [id number] ? [id number] INDICATIONS: ??19 weeks gestation of ?Z3A.19 ??GESTATIONAL DIABETES; AMA; OBESITY OB HISTORY: Blood ?A+ ?Height: ??5'6 ?Weight (lb): 261 ? BMI: ??42.12 Type: EVALUATION: Num Of Fetuses: ? 1 Heart ? 180 Rate(bpm): Cardiac Activity: ?? Observed, normal r hythm Presentation: ? Variable Placenta: ? Anterior P. Cord Insertion: ??Within Normal Limi ts Amniotic Fluid ZULAY FV: ?Appropriate for gestati onal age --------- BIOMETRY: --------- BPD: ?41.4 ??mm ? G.Age: ?? 18w 4d OFD: ?60.7 ??mm HC: ?164.8 ??mm ? G.Age: ?? 19w 1d AC: ?147.7 ??mm ? G.Age: ?? 20w 0d FL: ? 37.1 ??mm ? G.Age: ?? 21w 6d HUM: ?33.0 ??mm ? G.Age: ?? 21w 1d CER: ?19.0 ??mm ? G.Age: ?? 18w 4d NFT: ? 4.8 ??mm NB: ?4.7 ??mm LV: ?7.4 ??mm CM: ?4.1 ??mm CI: ?68.2 ??% ? 70 - 86 FL/HC: ? 22.5 ??% ? 16.8 - 19.8 HC/AC: ? 1.12 ?1.09 - 1.39 FL/BPD: ?89.6 ??% FL/AC: ? 25.1 ??% ? 20 - 24 Est. FW: ? 365 ?? gm ?? 0 lb 13 oz GESTATIONAL AGE: LMP: ? 19w 5d ?Date : ??01/04/18 ? CHERI: ?? 10/11/18 U/S Today: ? 19w 6d ?CHERI: ?? 10/10/18 Best: ?19w 5d ?? Det. By: ??LMP ??(01/04/18) ?CHERI: ?? 10/11/18 TARGETED ANATOMY: Central Nervous System Calvarium/Cranial V.: ??Within Normal L imits Intracranial Melly: ? Within Normal Limits Cavum: ? Visualiz ed Parenchyma: ?Within Nor mal Limits Lateral Ventricles: ?Within Normal Limits Choroid Plexus: ?Within Courtney l Limits Cereb./Vermis: ? Within Courtney l Limits Cisterna Magna: ?Within Courtney l Limits Midline Falx: ?Within Norm al Limits Spine Cervical: ?Visualize d Thoracic: ?Visualize d Lumbar: ?Visualiz ed Sacral: ?Visualiz ed Shape/Curvature: ? Visualized Head/Neck Face: ?Visuali zed Lips: ?Within Normal Limits Neck: ?Visuali zed Nuchal Fold: ? Within Norm al Limits Nasal Bone: ?Present Profile: ? Visualize d Orbits/Eyes: ? Visualized Mandible: ?Visualize d Maxilla: ? Visualize d Thorax Thoracic Contour: ?Visualized Lungs: ? Visualiz ed 4 Chamber View: ?4- chamber v iew margaret Cardiac Motion: ?Normal Rhyth m Rt Outflow Tract: ?Visualized Lt Outflow Tract: ?Visualized Aortic Arch: ? Visualized Ductal Arch: ? Visualized SVC: ? Visuali zed Cardiac [place]: ?Visualized Diaphragm: ? Visualized 3 Vessel View: ? Visualized IVC: ? Visuali zed Crossing: ?Visualize d Abdomen Ventral Wall: ?Visualized Cord Insertion: ?Visualized Situs: ? Normal Stomach: ? Visualize d Liver: ? Visualiz ed Lt Kidney: ? Visualized Rt Kidney: ? Visualized Bladder: ? Visualize d Bowel: ? Visualiz ed Extremities Lt Humerus: ?Visualized Rt Humerus: ?Visualized Lt Forearm: ?Visualized Rt Forearm: ?Visualized Lt Hand: ? Visualize d Rt Hand: ? Visualize d Lt Femur: ?Visualize d Rt Femur: ?Visualize d Lt Lower Leg: ?Visualized Rt Lower Leg: ?Visualized Lt Foot: ? Visualize d Rt Foot: ? Visualize d Other Umbilical Cord: ?3 vessel cor d CERVIX UTERUS ADNEXA: Left Ovary Size(cm) ? 2.3 ??x ?? 1.9 ?x ??1.1 ? Vol(ml): 2.5 Visualized Right Ovary Size(cm) ? 2.8 ??x ?? 1.4 ?x ??1.1 ? Vol(ml): 2.3 Visualized Procedure Note Halima Hoover MD - 05/22/2018For matting of this note might be different from the original. OBSTETRICS REPORT (Signed Final 018 11:20 am) PATIENT INFO: ID #: [id number] : [birth year] (37 y rs) Name: VONDA PATE Visit Date: 05/22 10:00 am PERFORMED BY: Performed By: Bruna Mae RDMS Attending: Halima Hoover MD Referred By: SHARMILA WILKINSON Location: [place] SERVICE(S) PROVIDED: [facility] - Detailed Morphology - [id number] INDICATIONS: 19 weeks gestation of Z3A.19 GESTATIONAL DIABETES; AMA; OBESITY OB HISTORY: Blood A+ Height: 5'6 Weight (lb): 261 BMI: 42.12 Type: EVALUATION: Num Of Fetuses: 1 Heart 180 Rate(bpm): Cardiac Activity: Observed, normal rhyt hm Presentation: Variable Placenta: Anterior P. Cord Insertion: Within Normal Limits Amniotic Fluid ZULAY FV: Appropriate for gestational age --------- BIOMETRY: --------- BPD: 41.4 mm G.Age: 18w 4d OFD: 60.7 mm HC: 164.8 mm G.Age: 19w 1d AC: 147.7 mm G.Age: 20w 0d FL: 37.1 mm G.Age: 21w 6d HUM: 33.0 mm G.Age: 21w 1d CER: 19.0 mm G.Age: 18w 4d NFT: 4.8 mm NB: 4.7 mm LV: 7.4 mm CM: 4.1 mm CI: 68.2 % 70 - 86 FL/HC: 22.5 % 16.8 - 19.8 HC/AC: 1.12 1.09 - 1.39 FL/BPD: 89.6 % FL/AC: 25.1 % 20 - 24 Est. FW: 365 gm 0 lb 13 oz GESTATIONAL AGE: LMP: 19w 5d Date: 01/04/18 CHERI: 9 U/S Today: w 6d CHERI: 10/10/18 Best: 19w 5d Det. By: LMP (01/04/18) ED TARGETED ANATOMY: Central Nervous System Calvarium/Cranial V.: Within Normal Ibarra its Intracranial Melly: Within Normal Limits Cavum: Visualized Parenchyma: Within Normal Limits Lateral Ventricles: Within Normal Limit s Choroid Plexus: Within Normal Limits Cereb./Vermis: Within Normal Limits Cisterna Magna: Within Normal Limits Midline Falx: Within Normal Limits Spine Cervical: Visualized Thoracic: Visualized Lumbar: Visualized Sacral: Visualized Shape/Curvature: Visualized Head/Neck Face: Visualized Lips: Within Normal Limits Neck: Visualized Nuchal Fold: Within Normal Limits Nasal Bone: Present Profile: Visualized Orbits/Eyes: Visualized Mandible: Visualized Maxilla: Visualized Thorax Thoracic Contour: Visualized Lungs: Visualized 4 Chamber View: 4- chamber view margaret Cardiac Motion: Normal Rhythm Rt Outflow Tract: Visualized Lt Outflow Tract: Visualized Aortic Arch: Visualized Ductal Arch: Visualized SVC: Visualized Cardiac [place]: Visualized Diaphragm: Visualized 3 Vessel View: Visualized IVC: Visualized Crossing: Visualized Abdomen Ventral Wall: Visualized Cord Insertion: Visualized Situs: Normal Stomach: Visualized Liver: Visualized Lt Kidney: Visualized Rt Kidney: Visualized Bladder: Visualized Bowel: Visualized Extremities Lt Humerus: Visualized Rt Humerus: Visualized Lt Forearm: Visualized Rt Forearm: Visualized Lt Hand: Visualized Rt Hand: Visualized Lt Femur: Visualized Rt Femur: Visualized Lt Lower Leg: Visualized Rt Lower Leg: Visualized Lt Foot: Visualized Rt Foot: Visualized Other Umbilical Cord: 3 vessel cord CERVIX UTERUS ADNEXA: Left Ovary Size(cm) 2.3 x 1.9 x 1.1 Vol(ml): 2.5 Visualized Right Ovary Size(cm) 2.8 x 1.4 x 1.1 Vol(ml): 2.3 Visualized IMPRESSION 2nd Trimester - Detailed Morphology - S ummarwanda Single intrauterine with a ge stational age of 19w 5d based on LMP (01/04/18). Composite age based on the current ultr asound alone is 19w 6d. Current growth parameters are consisten t with prior dating indicating normal growth. Amniotic fluid volume is appropriate fo r gestational age. Detailed anatomic evaluation was performed and no structural abnormalities are noted. Visualization limited due to maternal b danielito habitus (BMI = 42.12). Halima Hoover MD Electronically Signed Final Report 05/22 11:20 am Sharmila Wilkinson CNM IMG US OB ORDERABLES documented in this encounter Visit Diagnoses Diagnosis Elderly multigravida with antepartum con dition or complication Gestational diabetes mellitus (GDM) in s econd trimester, gestational diabetes method of control unspecified Maternal obesity syndrome in second trim segundo documented in this encounter Care Teams Taxation Inspector Relationship Specialty Start Date End Date None PCP - General 05/03/18 None documented as of this encounter
--- OUTSIDE RECORDS SUMMARY | 2022-04-21 16:10 | XMS_ITS | Encounter Summary ---
:1980 Author Organization [facility] [place] [address] Care Team Providers Name Role Phone None Primary Care Provider Unavailable Reason for Visit Reason Onset Date Comments Results 06/04/2018 Encounter Details Date Type Department Care Team Description 06/04/2018 Telephone Obstetrics and Gynecology at [facility] ter Taylor De Souza LGC Results [facility] OBSTETRICS [place] [address] [place] [address] [phone] (Wo rk) Social History Tobacco Use Types Packs/Day Years Used Date Never Smoker Smokeless Tobacco: Never Used Sex Assigned at Date Recorded Not on file documented as of this encounter Miscellaneous Notes Telephone Encounter - Taylor De Souza LGC - 06/04/2018 10:22 AM EDT Genetic Counseling Telephone Note ?? I left Vonda a voicemail message informing her of the following result: ?? Spinal Muscular Atrophy??Carrier Screen:?Negative, carrier risk has been significantly reduced and there is no need for further screening for her partner. The result will be mailed to Vonda's provider documented in this encounter Plan of Treatment Not on filedocumented as of this encounter Visit Diagnoses Not on filedocumented in this encounter Care Teams Load Dispatcher Local Relationship Specialty Start Date End Date None PCP - General 05/03/18 None documented as of this encounter
--- OUTSIDE RECORDS SUMMARY | 2022-04-21 16:10 | XMS_ITS | Encounter Summary ---
:1980 Author Organization [facility] Address [address] [place] [address] Care Team Providers Name Role Phone None Primary Care Provider Unavailable Reason for Visit Reason Comments Advanced Maternal Age Consultation (Routine) - Closed Specialty Diagnoses / Procedures Referred By Contact Refer red To Contact Obstetrics and Diagnoses MATERNAL AGE, OBESITY,GDM Geovanna Casillas CNM [facility] [employer] 5l Gynecology [address] [place] [address] [address] [place] [address] Phone: Fax: Referral ID Status Reason Start Date Expiration Date Visits Requ ested Visits Authorized [id number] Closed 04/09/2018 04/09/2019 2 2 Encounter Details Date Type Department Care Team Description 05/22/2018 Office Visit Obstetrics and [place] Taylor De Souza of [place] [facility] [place] [facility] for testing for [facility] gen etic disease Drive carrier status for [place], [place] OBSTETRICS & procreative man agement [address] GYNECOLOGY [phone] [place], [place] [address] Social History Tobacco Use Types Packs/Day Years Used Date Never Smoker Smokeless Tobacco: Never Used Sex Assigned at Date Recorded Not on file documented as of this encounter Progress Notes Taylor De Souza LGC - 05/22/2018 9:00 AM EDT Genetic Counseling Note Vonda Taylor is a 37 y.o. female currently at 19w5d gestation. She was referred to the Diagnosis Program by Geovanna Casillas CNM. I met with Vonda for a 30 minute genetic counselingvisit. She was accompanied to the visit by her , Tobin Taylor. Chief Complaint Patient presents with ??? Advanced Maternal Age, 37 at CHERI A limited pedigree was obtained and will be scanned into Vonda's electronic medical record. Family History Problem (# of Occurrences) Relation (Name,Age of Onset) Anxiety Disorder (3) Father, Sister, Brother Asthma (2) Father, Brother Autism Spectrum Disorder (2) Father: Asperger, Brother: Asperger Diabetes (1) Father Heart Disease (1) Father Migraines (1) Sister Myocardial Infarction (1) Father (62) Schizophrenia (1) Brother The reported family history was otherwise unremarkable for intellectual disability, congenital anomalies, recurrent loss, or known genetic conditions that could have implications for this . Vonda is [place] Imperial and Somali, and Tobin is Uzbek. Consanguinity was denied. Obstetric History T1 L0 SAB0 TAB0 Ectopic0 Multiple0 Live Births0 # Outcome Date GA Lbr Eric/2nd Weight Sex Delivery Anes PTL Lv 2 Current 1 Term 09/30/16 40w1d 3.6 kg (7 lb 15 oz) M Vag-Spont Name: Humble Patient's last menstrual period was 01/04/2018. Estimated Date of Delivery: 10/11/18 based on LMP Completed Screening Test Result ??? Aneuploidy screen - [place] Low probability ?? Spinal muscular atrophy screen Not in record ??? Cystic fibrosis carrier screen Negative ??? Thalassemia screen MCV within normal limits (86.6 fL) Assessment 1.) Maternal age, 40, at CHERI: We reviewed the association between maternal age and chromosome aneuploidy. We discussed the benefits and limitations of diagnostic testing with amniocentesis, as compared with screening with ultrasound and cell-free DNA screening ([place]). Vonda has low risk [place] results. We discussed the limited scope and screening nature of [place] and that amniocentesis can detect additional chromosomal conditions. Amniocentesis is associated with a ~1 in 300 risk of miscarriage. Vonda declines amniocentesis, but may reconsider if her ultrasound exam today reports any findings. We discussed the benefits and limitations of ultrasound performed at 18 to 20 weeks. Ultrasound detects half of fetuses with Down syndrome, and would detect the majority of fetuses with trisomies 13 and 18. [place] does not screen for open neural tube defects. 2.) Spinal muscular atrophy carrier screening: ACOG recommends offering carrier testing to all couples for spinal muscular atrophy (SMA),regardless of ethnicity. SMA has a carrier frequency of approximately 1 in 35 and carrier detection rate of approximately 90 to 95% in Caucasians. Again, a negative c arrier result for SMA would reduce, but not eliminate, one's carrier risk. ?? 3.) Lisandro-Sachs carrier screening was offered because Vonda reported [place] Imperial ancestry. The disease course and autosomal recessive inheritance were reviewed. Given Tobin is neither [place] Canadiannor Ashkenazi Restorationism, his carrier risk is quite low, thereby making the risk to the fetus low (at most 1 in 84,000). Lisandro-Sachs carrier screening was declined. Plan: SMA carrier screening today. Following our visit, Vonda had a morphology ultrasound andmaternal- medicine consultation with Dr. Renuka Hoover. Please refer to her note for further details and recommendations. A prior authorization request was submitted today to /[employer] [place] for SMA carrier screening. documented in this encounter Plan of Treatment Not on filedocumented as of this encounter Results Spinal Muscular Atrophy (05/22/2018 11:36 AM EDT) Patholo gist Method Time Signature Spinal See Scan [facility] LABORATORY Comment: Test performed by [facility], [address] [place] [address] Specimen Anatomical Collection Method Collection Time Receive d Time (Source) Location / / Volume Laterality Blood specimen 05/22/2018 11:36 8 1:02 (specimen) AM EDT PM EDT Narrative This result has an attachment that is no t available. Resulting Agency Comment Spec In Lab E Joanne Hoover MD CHEMISTRY ORDERABLES Performing Organization Address City/State/[place] [address] documented in this encounter Visit Diagnoses Diagnosis Encounter of female for testing for gene tic disease carrier status for procreative management Testing of female for genetic disease ca rrier status documented in this encounter Care Teams Neurology Nurse Relationship Specialty Start Date End Date None PCP - General 05/03/18 None documented as of this encounter
--- OUTSIDE RECORDS SUMMARY | 2022-04-21 16:11 | XMS_ITS | Clinical Summary ---
:1980 Author Organization [facility] Address [address] [place] [address] Care Team Providers Name Role Phone Unknown, Provider Primary Care Provider Social History Tobacco Use Types Packs/Day Years Used Date Never Assessed Sex Assigned at Date Recorded Not on file Plan of Treatment Not on file Care Teams Ham Stripper Relationship Specialty Start Date End Date Unknown, Provider, PCP - General 10/24/11
--- OUTSIDE RECORDS SUMMARY | 2022-04-21 16:11 | XMS_ITS | Encounter Summary ---
:1980 Author Organization [facility] Address [address] [place] [address] Care Team Providers Name Role Phone Unavailable Primary Care Provider Unavailable Encounter Details Date Type Department Care Team Description 10/20/2011 Hospital Encounter [facility] - Livia Luu NP [id number] [place] [phone] (Wo rk) Social History Tobacco Use Types Packs/Day Years Used Date Never Assessed Sex Assigned at Date Recorded Not on file documented as of this encounter Discharge Disposition Disposition Code Departure Means Destination Home or Self Care documented in this encounter Plan of Treatment Not on filedocumented as of this encounter Visit Diagnoses Not on filedocumented in this encounter
--- OUTSIDE RECORDS SUMMARY | 2022-04-21 16:11 | XMS_ITS | Encounter Summary ---
:1980 Author Organization [facility] Address [address] [place] [address] Care Team Providers Name Role Phone Unknown, Provider Primary Care Provider Encounter Details Date Type Department Care Team Description 10/20/2011 Results Only [facility] Gabriela Motley, Laboratory Services - [employer] [address] [place] [phone] (Wo rk) Social History Tobacco Use Types Packs/Day Years Used Date Never Assessed Sex Assigned at Date Recorded Not on file documented as of this encounter Plan of Treatment Not on filedocumented as of this encounter Procedures Procedure Name Priority Date/Time Associated Diagnosis Comme nts PAP TEST- RESULT Routine 10/20/2011 0:00 EST Resu lts for this ONLY procedure are i n the results section. documented in this encounter Results PAP TEST- RESULT ONLY (10/20/2011 0:00 EST) Pathology Report: CYTOPATHOLOGY REPORT [facility] Reports generated via electronic interface contain nam ginal data; however they are lacking the format of the original re port. Caution should be taken when reading/interpreting unfo rmatted reports. Name: ? VONDA PATE ? Accession #: ? [id number] : ? 1980 (Age: 30) ??F ?Collect Date: ? 10/2011 Location: ? [facility] ? Receive Date : ? 10/24/2011 Provider: ?GABRIELA MOTLEY [employer] Copy to: ? Specimen/Source: ? Pap Test, Cervix/Endocervix, ThinPrep Imaging System with manual evaluation Last Menstrual Period: ? 10/03/11 ? SPECIMEN ADEQUACY ? Satisfactory for Evaluation - transformation zone component present GENERAL CATEGORIZATION ? Negative for Intraepithelial Lesion or Malignan cy ? Document reviewed and electronically signed by: ? AD Marmolejo(ASCP) ? Report Date: ??10/27/2011 11:11 End of Report Specimen Performing Organization Address City/State/ZIP Code Phon e Number [facility] [address] [place] [address] SERVICES [facility] [address] [place] [address] documented in this encounter Visit Diagnoses Not on filedocumented in this encounter Care Teams Plumbing Warehouse Helper Relationship Specialty Start Date End Date Unknown, Provider, PCP - General 10/24/11 documented as of this encounter
[2022-04-21 19:06] LABS: HCT 39.3 % (36.0-46.0); HGB 12.9 g/dL (11.2-15.7); MCH 28.1 pg (27.0-33.0); MCHC 32.8 % (32.0-36.0); MCV 86 fL (80-95); MPV 9.8 fL (8.0-11.0); Platelet Count 437 10^3/uL (130-400); RBC 4.59 10^6/uL (3.93-5.22); RDW 13.1 % (11.7-14.6); RDW-SD 40.6 fL; WBC 11.42 10^3/uL (4.4-10.8)
[2022-04-21 19:41] LABS: ALT 20 U/L (14-59); AST 20 U/L (15-37); Albumin 3.7 g/dL (3.4-5.0); Alkaline Phosphatase 75 U/L (46-116); Anion Gap 9.7 mmol/L (3-11); BUN 13 mg/dL (7-18); Bilirubin, Total 0.4 mg/dL (0.2-1.0); CO2 26.3 mmol/L (21.0-32.0); CREATININE 0.8 mg/dL (0.55-1.02); Calcium 9.1 mg/dL (8.5-10.1); Calculated LDL 102 mg/dL (<100); Chloride 102 mmol/L (98-107); Cholesterol 170 mg/dL (<200); Glucose 95 mg/dL (74-106); HDL Cholesterol 45 mg/dL (40-60); Potassium 3.6 mmol/L (3.5-5.1); Sodium 138 mmol/L (136-145); Total Protein 8.4 g/dL (6.4-8.2); Triglyceride 119 mg/dL (<150)
== END 2022-04-21 16:06 | disposition home or self-care (01) ==
LOC: NCHCN 16:05
PROVIDERS: PCP Internal Medicine Sleep Medicine; Visit Provider Nurse Practitioner Family
DX: Z00.00 Encounter for general adult medical examination without abnormal findings (principal); Z82.49 Family history of ischemic heart disease and other diseases of the circulatory system
CPT/HCPCS: 80053; 80061; 85027

== ENCOUNTER 2022-06-01 16:57 | Outpatient (REF) | payer BC, SELFPAY ==
--- NOTE | 2022-06-01 16:00 | PAPFT_PTH ---
PATIENT: Vonda Taylor LOC: [facility]#:[id number] AGE/SX: 41/F ROOM: RE06/01/[address]: Gabi Pabon : 1980 BED: DIS: 06/01/2022 SPEC #: [id number] RECD: 06/02/22 12:42 STATUS: MONIVidya REQ #: [id number] MARIA VICTORIA: 06/01/22 16:[address]: Gabi Pabon DEPT: [facility] Cytology RECD BY: Tiera Bustillo ENTERED: 06/02/22 12:43 SP TYPE: PAPFT OTHR DR: Lex Odell Tissues: 1 - CX/ENDOCX FOR PAP SMEARS Procedures: PAP THIN PREP/UVM Screening HPV DNA PROBE Comments: [id number] (CHLAMYDIA/GC)
[2022-06-03 15:16] LABS: Chlamydia Result Negative (Negative); GC Result Negative (Negative)
== END 2022-06-01 16:58 | disposition home or self-care (01) ==
LOC: NCHCN 16:57
PROVIDERS: PCP Internal Medicine Sleep Medicine; Visit Provider Nurse Practitioner Family
DX: Z12.4 Encounter for screening for malignant neoplasm of cervix (principal); Z11.51 Encounter for screening for human papillomavirus (HPV); Z11.3 Encounter for screening for infections with a predominantly sexual mode of transmission
CPT/HCPCS: 87491; 87591; 88142; 87624

== ENCOUNTER 2023-07-03 22:32 | Outpatient (REF) | payer BC, SELFPAY ==
[2023-07-03 22:08] LABS: ALT 26 U/L (14-59); AST 19 U/L (15-37); Albumin 3.5 g/dL (3.4-5.0); Alkaline Phosphatase 67 U/L (46-116); Anion Gap 8.2 mmol/L (3-11); BUN 7 mg/dL (7-18); Bilirubin, Total 0.5 mg/dL (0.2-1.0); CO2 24.8 mmol/L (21.0-32.0); CREATININE 0.9 mg/dL (0.55-1.02); Calcium 9.2 mg/dL (8.5-10.1); Chloride 103 mmol/L (98-107); Estimated GFR 81.86 (mL/min/1.73m2); Glucose 115 mg/dL (74-106); Potassium 4.1 mmol/L (3.5-5.1); Sodium 136 mmol/L (136-145); Total Protein 7.2 g/dL (6.4-8.2)
[2023-07-03 22:16] LABS: COVID-19 PCR POSITIVE (Negative)
[2023-07-03 23:04] LABS: Source Nasal/Nares
== END 2023-07-03 22:33 | disposition home or self-care (01) ==
LOC: NCHCN 22:32
PROVIDERS: PCP Internal Medicine Sleep Medicine; Visit Provider Nurse Practitioner Family
DX: J02.9 Acute pharyngitis, unspecified (principal); Z79.899 Other long term (current) drug therapy; Z20.822 Contact with and (suspected) exposure to COVID-19
CPT/HCPCS: 80053; 87635; 87070

== ENCOUNTER 2024-08-12 01:25 | Outpatient (CLI) | payer BC, SELFPAY ==
--- NOTE | 2024-08-12 15:38 | DI.MAMMO_ITS ---
Exam(s) MAMMO SCREENING EXAM: MAMMO SCREENING CLINICAL HISTORY: SCREENING, Z12.31 TECHNIQUE: Bilateral full field digital CC and MLO mammographic images were obtained with 3D tomosyn thesis and utilizing computer aided detection (CAD). COMPARISON: This is a baseline examination. FINDINGS: Masses/Architectural Distortion: There is a 1 cm partially obscured nodular density in the outer left breast on the CC view appears to lie in the upper quadrant of the left breast on the MLO view. Ther e are no areas of architectural distortion. Microcalcifications: No suspicious pleomorphic-type are seen. Skin Thickening/Nipple Retraction: None. IMPRESSION: 1. 1 cm partially obscured nodule in the upper outer quadrant of the left breast. 2. Further evaluation with a spot compression view and limited left breast ultrasound are requested. BI-RADS Category 0 - Incomplete: Need additional imaging evaluation Breast Density - Category B - Scattered areas of fibroglandular density Breast density category C or D implies that the patient has dense breast tissue. Dense breast tissue is very common and is not abnormal but dense breast tissue can make it harder to find cancer on a ma mmogram. Also, dense breast tissue may increase their breast cancer risk. This information about the result of the mammogram report was provided to the patient to raise their awareness. Use this report when you speak with the patient about their risks for breast cancer, which includes their family hist ory. At that time, you may recommend for more screening tests (Ultrasound or MRI) as they might be us eful based on their risk. A negative radiographic report should not delay biopsy if a dominant or clinically suspicious mass is present. Up to ten percent of cancers are not identified on mammography. A negative report may reinforce clinical impression. Adenosis and dense breasts may obscure an underlying neoplasm. False positive reports average 6 to 10%. Patient will receive a letter notifying them of these results.
== END 2024-08-12 01:45 ==
LOC: DI 01:25
PROVIDERS: PCP Internal Medicine Sleep Medicine; Visit Provider Nurse Practitioner Family
DX: Z12.31 Encounter for screening mammogram for malignant neoplasm of breast (principal); R92.323 Mammographic fibroglandular density, bilateral breasts
CPT/HCPCS: 77063; 77067

== ENCOUNTER 2024-08-14 17:50 | Outpatient (REF) | payer BC, SELFPAY ==
[2024-08-14 14:55] LABS: HCT 39.4 % (36.0-46.0); HGB 13.1 g/dL (11.2-15.7); MCH 29.6 pg (27.0-33.0); MCHC 33.2 % (32.0-36.0); MCV 89 fL (80-95); MPV 9.8 fL (8.0-11.0); Platelet Count 385 10^3/uL (130-400); RBC 4.43 10^6/uL (3.93-5.22); RDW 13.2 % (11.7-14.6); RDW-SD 43.1 fL; WBC 6.77 10^3/uL (4.4-10.8)
[2024-08-14 15:35] LABS: ALT 18 U/L (14-59); AST 12 U/L (15-37); Albumin 3.7 g/dL (3.4-5.0); Alkaline Phosphatase 59 U/L (46-116); Anion Gap 8.5 mmol/L (3-11); BUN 12 mg/dL (7-18); Bilirubin, Total 0.86 mg/dL (0.2-1.0); CO2 25.5 mmol/L (21.0-32.0); CREATININE 0.9 mg/dL (0.55-1.02); Calcium 9.4 mg/dL (8.5-10.1); Calculated LDL 91 mg/dL (<100); Chloride 104 mmol/L (98-107); Cholesterol 160 mg/dL (<200); Estimated GFR 81.35 (mL/min/1.73m2); Glucose 75 mg/dL (74-106); HDL Cholesterol 59 mg/dL (40-60); Potassium 4.8 mmol/L (3.5-5.1); Sodium 138 mmol/L (136-145); Total Protein 7.4 g/dL (6.4-8.2); Triglyceride 54 mg/dL (<150)
--- OUTSIDE RECORDS SUMMARY | 2024-08-14 17:51 | XMS_ITS | Clinical Summary ---
Author Organization [facility] Address [address] [place] [address] Care Team Providers Care Jukebox Coin Collector Name Role Phone Unknown, Provider MD Primary Care Provider Unava ilable Social History Tobacco Use Types Packs/Day Years Used Date Smoking Tobacco: Never Assessed Comments Unknown Sex and Gender Information Value Date Recorded Sex Assigned at Not on file Legal Sex Female 18:18 EST Gender Identity Not on file Sexual Orientation Not on file Plan of Treatment Health Maintenance Due Date Last Done Comments Hepatitis C Screen 1980 Hepatitis B Vaccine (1 of 3 - 19+ 3-dose series) 11/06 COVID-19 Vaccine (2023- season) 2024 Care Teams Jukebox Coin Collector Relationship Specialty Start Date End Date Unknown, Provider, PCP - General 10/24/11
--- OUTSIDE RECORDS SUMMARY | 2024-08-14 17:51 | XMS_ITS | Referral Summary ---
Author Organization [facility] Address [address] [place] [address] Care Team Providers Care Wrapper Hand Name Role Phone Unknown, Provider MD Primary Care Provider Unava ilable Social History Tobacco Use Types Packs/Day Years Used Date Smoking Tobacco: Never Assessed Comments Unknown Sex and Gender Information Value Date Recorded Sex Assigned at Not on file Legal Sex Female 18:18 EST Gender Identity Not on file Sexual Orientation Not on file Plan of Treatment Not on file Care Teams Wrapper Hand Relationship Specialty Start Date End Date Unknown, Provider, PCP - General 10/24/11
--- OUTSIDE RECORDS SUMMARY | 2024-08-14 17:52 | XMS_ITS | Encounter Summary ---
[place] [address] Care Team Providers Care Flight Operation Coordinator Name Role Phone Greg Islas MD Primary Care Provider [phone] Encounter Details Date Type Department Care Team (Latest Contact Info) Description 03/25/2016 9:50 AM EDT Laboratory Appointment Lab [address] [place] [id number] Maternal age 35+, primigravida, first trimester Social History Tobacco Use Types Packs/Day Years Used Date Smoking Tobacco: Never Assessed Comments Yes Sex and Gender Information Value Date Recorded Sex Assigned at Not on file Gender Identity Not on file Sexual Orientation Not on file documented as of this encounter Plan of Treatment Not on file documented as of this encounter Procedures Procedure Name Priority Date/Time Associated Diagnosis Comments MISCELLANEOUS LAB REQUEST Routine 03/25/2016 10:11 AM EDT Maternal age 35+, primigravida, first trimester documented in this encounter Results * Miscellaneous Lab request (03/25/2016 10:11 AM EDT) Label Request received in lab. [facility] Blood specimen (specimen) 03/25/2016 10:11 AM EDT 03/25/2016 11:03 AM EDT Narrative Resulting Agency Comment Spec In Lab Ember Moran MD LAB SEND OUT ORDER CESAR [facility] [place] [address] documented in this encounter Visit Diagnoses Diagnosis Maternal age 35+, primigravida, first trimester documented in this encounter Care Teams Flight Operation Coordinator Relationship Specialty Start Date End Date Greg Islas MD [address], [facility] [address] [place] [address] PCP - General Family Medicine 03/10/16 05/02/18 documented as of this encounter
--- OUTSIDE RECORDS SUMMARY | 2024-08-14 17:52 | XMS_ITS | Encounter Summary ---
Author Organization [facility] [place] [address] Care Team Providers Care School Manager Name Role Phone Greg Islas MD Primary Care Provider [phone] Encounter Details Date Type Department Care Team (Late st Contact Info) Description 03/25/2016 Orders Only Obstetrics [place] [address] Kemal Cerrato, [facility] [address] OBSTETRICS & [place] [address] Maternal age 35+, primigravida, first trimester (Primary Dx) Social History Tobacco Use Types Packs/Day Years Used Date Smoking Tobacco: Never Assessed Comments Yes Sex and Gender Information Value Date Recorded Sex Assigned at Not on file Gender Identity Not on file Sexual Orientation Not on file documented as of this encounter Plan of Treatment Not on file documented as of this encounter Results * Miscellaneous Lab request (03/25/2016 10:11 AM EDT) Label Request received in lab. [facility] Blood specimen (specimen) 03/25/2016 10:11 AM EDT 03/25/2016 11:03 AM EDT Narrative Resulting Agency Comment Spec In Lab Ember Moran MD LAB SEND OUT ORDER CESAR [facility] [place] [address] documented in this encounter Visit Diagnoses Diagnosis Maternal age 35+, primigravida, first trimester- Primary documented in this encounter Care Teams School Manager Relationship Specialty Start Date End Date Greg Islas MD [address], [facility] [address] [place] [address] PCP - General Family Medicine 03/10/16 05/02/18 documented as of this encounter
--- OUTSIDE RECORDS SUMMARY | 2024-08-14 17:52 | XMS_ITS | Clinical Summary ---
Author Organization [facility] Address [facility] [address] Care Team Providers Care Launch Manager Name Role Phone None Primary Care Provider Unavailabl e Allergies Active Allergy Reactions Criticality Noted Date Comments Cephalexin Monohydrate 02/08/2016 Other reaction(s): cephalexin monohydrate Phenylpropanolamine 02/08/2016 Other reaction(s): phenylpropanolamine Shellfish Derived 02/08/2016 Other reaction(s): shellfish derived Medications Medication Sig Dispensed Refills Start Date End Date Status FREESTYLE LITE STRIPSIndications:Insul in controlled gestational diabetes mellitus (GDM) in second trimester 05/18/2018 Active FREESTYLE LITE METER KitIndications:Insulin controlled gestational diabetes mellitus (GDM) in second trimester 03/09/2018 Activ e glyBURIDE (DIABETA) 2.5 mg TabletIndications:Insul in controlled gestational diabetes mellitus (GDM) in second trimester 05/10/2018 Active FREESTYLE LANCETS 28 gauge MiscIndications:Insulin controlled gestational diabetes mellitus (GDM) in second trimester 03/09/2018 Activ e pantoprazole (PROTONIX) 20 mg Tablet, Delayed Release (E.C.)Indications:Insul in controlled gestational diabetes mellitus (GDM) in second trimester 04/27/2018 Active 95-iron pso-qkhcr-nkj ( + DHA) 28 mg iron-800 mcg-200 mg Combo PackIndications:Insulin controlled gestational diabetes mellitus (GDM) in second trimester 02/02/2016 Activ e ibuprofen (ADVIL;MOTRIN) 800 mg TabletIndications:Insul in controlled gestational diabetes mellitus (GDM) in second trimester Three times a day 04/05/2013 A ctive magnesium oxide (MAG-OX) 400 mg TabletIndications:Insul in controlled gestational diabetes mellitus (GDM) in second trimester Daily 02/08/2016 Active vitamin B complex vit C no.3 (VITAMIN B COMP AND C NO.3 ORAL)Indications:Insuli n controlled gestational diabetes mellitus (GDM) in second trimester Daily 02/08/2016 Active Active Problems No known active problems Family History Medical History Relation Comments Anxiety Disorder Brother Asthma Brother Autism Spectrum Disorder Brother Asperge r Schizophrenia Brother Anxiety Disorder Father Asthma Father Autism Spectrum Disorder Father Asperge r Diabetes Father Heart Disease Father Myocardial Infarction Father Anxiety Disorder Sister Migraines Sister Relation Status Comments Brother Father Sister Social History Tobacco Use Types Packs/Day Years Used Date Smoking Tobacco: Never Smokeless Tobacco: Never Sex and Gender Information Value Date Recorded Sex Assigned at Not on file Gender Identity Not on file Sexual Orientation Not on file Last Filed Vital Signs [...] Health Maintenance Due Date Last Done Comments HIV screen 1998 Hepatitis C Screening 1998 Hepatitis B vaccine (0-59 yrs) (1) 1999 Tetanus/Diphtheria/Pertussis Vaccines (1 - Tdap) 11/06 HPV test 2010 PAP Smear 2010 Breast Cancer Share Decision Needed 2020 Breast Cancer screening 2020 Covid-19 Vaccine (1 - season) 2024 Influenza (Flu) vaccine (1 o f 1 - Influenza standard series) 05/19/2024 Care Teams Launch Manager Relationship Specialty Start Date End Date None None PCP - General 05/03/18
--- OUTSIDE RECORDS SUMMARY | 2024-08-14 17:52 | XMS_ITS | Encounter Summary ---
Author Organization [facility] Address [address] [place] [address] Care Team Providers Care Medical Staff Specialist Name Role Phone Unknown, Provider Primary Care Provider Unava ilable Encounter Details Date Type Department Care Team (Late st Contact Info) Description 10/20/2011 Results Only [facility] - [facility] [place] [address] [place] [address] Gabriela Motley, LILI [address] [place] [address] Social History Tobacco Use Types Packs/Day Years [...] Procedure Name Priority Date/Time Associated Diagnosis Comments PAP TEST- RESULT ONLY Routine 10/20/2011 0:00 EST documented in this encounter Results * PAP TEST- RESULT ONLY (10/20/2011 0:00 EST) Pathology Report: CYTOPATHOLOGY REPORT Reports generated via electronic interface contain original data; however they are lacking the format of the original report. Caution should be taken when reading/interpreti ng unformatted reports. Name: ? VONDA PATE ? Accession #: ? [id number] : ? 1980 (Age: 30) ??F ?Collect Date: ? 10/20/2011 Location: ? [facility] ? Receive Date: ? 10/24/2011 Provider: ?GABRIELA MOTLEY LOAD HAUL DUMP OPERATOR Copy to: ? Specimen/Source: ?Pap Test, Cervix/Endocervix, ThinPrep Imaging System with manual evaluation Last Menstrual Period: ? 10/03/11 ? SPECIMEN ADEQUACY ? Satisfactory for Evaluation - transformation zone component present GENERAL CATEGORIZATION ? Negative for Intraepithelial Lesion or Malignancy ? Document reviewed and electronically signed by: ? Hugo Walsh, CT(ASCP) ? Report Date: ??10/27/2011 11:11 End of Report [facility] 10/20/2011 10/24/2011 us Gabriela Motley LOAD HAUL DUMP OPERATOR PATHOLOGY ORDERABLES Fin al Result [facility] [address] [place] [address] documented in this encounter Visit Diagnoses Not on filedocumented in this encounter Care Teams Medical Staff Specialist Relationship Specialty Start Date End Date Unknown, Provider, PCP - General 10/24/11 documented as of this encounter
--- OUTSIDE RECORDS SUMMARY | 2024-08-14 17:52 | XMS_ITS | Encounter Summary ---
Author Organization [facility] Address [facility] [place] [address] Care Team Providers Care Quality Rn Name Role Phone None Primary Care Provider Unavailabl e Reason for Visit * Reason Comments Follow-up * Consultation (Routine) - Closed Specialty Diagnoses / Procedures Referred By Noreen woods Referred To Contact Obstetrics and Gynecology Diagnoses MATERNAL AGE, OBESITY,GDM Geovanna Casillas[address] [address] [facility] [address] [place] [address] Referral ID Status Reason Start Date Expiration Date Visits Re quested Visits Authorized [id number] Closed 04/09/2018 04/09/2019 2 2 Encounter Details Date Type Department Care Team (Latest Contact Info) Description 05/22/2018 11:00 AM EDT Procedure visit Obstetrics [place] [address] Halima Hoover MD [facility] [address] OBSTETRICS [place] [address] Insulin controlled gestational diabetes mellitus (GDM) in second trimester; Encounter of female for testing for genetic disease carrier status for procreative management; AMA (advanced maternal age) multigravida 35+, second trimester Social History Tobacco Use Types Packs/Day Years Used Date Smoking Tobacco: Never Smokeless Tobacco: Never Comments Yes Sex and Gender Information Value [...] - documented in this encounter Progress Notes * Halima Hoover MD - 05/22/2018 11:00 AM EDT Diagnosis/Maternal [...] history and updated it as appropriate. I alsoreviewed and updated as appropriate her allergies and medications. I reviewed her record and ultrasound reports to date. Ultrasound Date: 05/22/2018 Amniotic [...] normal appearing survey. The patient declined further testing.Due to first trimester diagnosis of gestational diabetes, I recommend daily low dose aspirin, as well as echocardiogram at 22 - 24 weeks. I appreciate the opportunity to be involved in this patients care, and am available if further questions should arise. E RIAN PSCHIRRER, MD 05/22/2018 Cc: Geovanna Casillas, [facility] [address] [place] [address] , with copy of ultrasound report documented in this encounter Plan of Treatment Not on file documented as of this encounter Procedures Procedure Name Priority Date/Time Associated Diagnosis Comments SPINAL MUSCULAR ATROPHY Routine 05/22/2018 11:36 AM EDT Encounter of female for testing for genetic disease carrier status for procreative management documented in this encounter Results * ECHO COMPLETE (07/20/2018 12:09 PM EDT) Anatomical Region Laterality Modality Other 07/20/2018 Narrative 07/20/2018 12:42 PM EDT Procedure: ?Pediatric Echocardiogram Patient: ?SCAVITTO VONDA ? (Age): 1980(37y) ? Med Rec#: ? [id number] ?Sex: ?F ? [place] Loc[place] ? [facility] ?Ht / Wt: ??(cm)/ (kg) ? Pt. Loc: ?Echo Lab ? Study Date: ?? 07/20/2018 ?Pt. Type: Study Quality: ? Referring: Halima HOOVER REBECCA Reading: Gloria Fernández A. ([id number]) Diagnosis: *Gestational diabetes mellitus in , insulin controlled (O24.414) BP: ? / SUMMARY: 1. A echocardiogram was performed at 28 weeks 1 days gestation (CHERI: 10/11/2018) due to maternal diabetes. Fair quality images were obtained. ??The fetus is in vertex position. ?? 2. Levocardia with normal segmental and conotruncal anatomy {S,D,S}. ?? 3. Valve structure and function appear normal. 4. Normal chamber dimensions, myocardial appearance, wall thickness, ventricular systolic function. 5. Normal heart rate (142 bpm). Normal mechanical GA interval (116 ms). The heart rhythm was regular throughout. 6. No cardiac structural abnormalities were identified. ?? 7. No hydrops. 8. No specific or cardiac follow-up is required on this basis of this study. 9. The limitations of echocardiography include the inability to diagnose patent ductus arteriosus, some atrial and ventricular septal defects, minor valve abnormalities and coarctation. FINDINGS: ? Venous Connections ?There are normal systemic venous connections, with the superior and inferior vena cavae returning to the right atrium. Normal spectral Doppler patterns in umbilical vein, ductus venosus, ductus arteriosus, and umbilical artery. ?At least one pulmonary vein from each side enters the left atrium. No pulmonary venous anomalies are detected. ?? Atrial Septum ?There is a patent foramen ovale (PFO). ?There is vxrtc-ag-snal shunting across the patent foramen ovale with color Doppler. (Normal physiology.) Av Valves ?The tricuspid valve is functionally and structurally normal. ?The tricuspid valve diameter measures 11 mm in the lateral plane obtained from the A4C view. (Z-Score: +1.49) ?The mitral valve is functionally and structurally normal. ?The mitral valve diameter measures 10.3 mm in the lateral plane obtained from the A4C view. (Z-Score: +1.53) Ventricles ?The right ventricle is of normal size. ?The right ventricular systolic function is normal. ?The left ventricular chamber size, wall thickness and systolic function are normal. ?The global left ventricular systolic function is normal. Ventricular Septum ?The interventricular septum is intact with no evidence of a ventricular septal defect. Semilunar Valves ?The pulmonary valve is normal, with normal leaflets, no stenosis or insufficiency. ?The pulmonary valve annulus diameter measures 6.5 mm. (Z-Score: +1.43) ?The pulmonary valve leaflets are of normal thickness. ?The aortic valve annulus diameter measures 5.7 mm. (Z-Score: +1.9) ?The aortic valve leaflets are of normal thickness. Thoracic Arteries ?The main pulmonary artery is normal, without dilatation, stenosis, or aneurysm. The great arteries are normally related. ?The right pulmonary artery has normal size, origin, and configuration. ?The left pulmonary artery has normal size, origin, and configuration. ?There is a patent ductus arteriosus. ?There is ghxnr-ch-qpde shunting across the patent ductus arteriosus with color Doppler. (Normal physiology.) ?The ascending aorta is normal, without dilatation or narrowing. ?The ascending aorta diameter measures 5.7 mm from the long axis view. (Z-Score: +0.88) ?The aortic arch is normal, without dilatation, aneurysm or coarctation. The aortic isthmus is normal sized. ?The aortic isthmus diameter measures 3.4 mm distal to the left subclavian artery. (Z-Score: +0.07) ?The descending aorta is normal, without dilatation, narrowing or aneurysm. Effusion ?There is [...] are estimated This report has been electronically signed by: Gloria Fernández MD ? 07/20/2018 12:42:26 Images reviewed and interpretation verified [facility]ound [facility] Procedure Note Gloria Fernández MD - 07/20/2018 Procedure: Pediatric Echocardiogram Patient: HERLINDA BERRIOS DOB(Age): 1980(37y) Med Rec#: [id number] Sex: F [place] [facility] Ht / Wt: (cm)/ (kg) Pt. Loc: Echo Lab Study Date: 07/20/2018 Pt. Type: Study Quality: Referring: Halima HOOVER REBECCA Reading: Gloria Fernández ([id number]) Diagnosis: *Gestational diabetes mellitus in , insulin controlled (O24.414) BP: / SUMMARY: 1. A echocardiogram was performed at 28 weeks 1 days gestation (CHERI: 10/11/2018) due to maternal diabetes. Fair quality images were obtained. The fetus is in vertex position. 2. Levocardia with normal segmental and conotruncal anatomy {S,D,S}. 3. Valve structure and function appear normal. 4. Normal chamber dimensions, myocardial appearance, wall thickness, ventricular systolic function. 5. Normal heart rate (142 bpm). Normal mechanical GA interval (116 ms). The heart rhythm was regular throughout. 6. No cardiac structural abnormalities were identified. 7. No hydrops. 8. No specific or cardiac follow-up is required on this basis of this study. 9. The limitations of echocardiography include the inability to diagnose patent ductus arteriosus, some atrial and ventricular septal defects, minor valve abnormalities and coarctation. FINDINGS: Venous Connections There are normal systemic venous connections, with the superior and inferior vena cavae returning to the right atrium. Normal spectral Doppler patterns in umbilical vein, ductus venosus, ductus arteriosus, and umbilical artery. At least one pulmonary vein from each side enters the left atrium. No pulmonary venous anomalies are detected. Atrial Septum There is a patent foramen ovale (PFO). There is cplkg-cc-dgyy shunting across the patent foramen ovale with color Doppler. (Normal physiology.) Av Valves The tricuspid valve is functionally and structurally normal. The tricuspid valve diameter measures 11 mm in the lateral plane obtained from the A4C view. (Z-Score: +1.49) The mitral valve is functionally and structurally normal. The mitral valve diameter measures 10.3 mm in the lateral plane obtained from the A4C view. (Z-Score: +1.53) Ventricles The right ventricle is of normal size. The right ventricular systolic function is normal. The left ventricular chamber size, wall thickness and systolic function are normal. The global left ventricular systolic function is normal. Ventricular Septum The interventricular septum is intact with no evidence of a ventricular septal defect. Semilunar Valves The pulmonary valve is normal, with normal leaflets, no stenosis or insufficiency. The pulmonary valve annulus diameter measures 6.5 mm. (Z-Score: +1.43) The pulmonary valve leaflets are of normal thickness. The aortic valve annulus diameter measures 5.7 mm. (Z-Score: +1.9) The aortic valve leaflets are of normal thickness. Thoracic Arteries The main pulmonary artery is normal, without dilatation, stenosis, or aneurysm. The great arteries are normally related. The right pulmonary artery has normal size, origin, and configuration. The left pulmonary artery has normal size, origin, and configuration. There is a patent ductus arteriosus. There is utqhb-nt-ivto shunting across the patent ductus arteriosus with color Doppler. (Normal physiology.) The ascending aorta is normal, without dilatation or narrowing. The ascending aorta diameter measures 5.7 mm from the long axis view. (Z-Score: +0.88) The aortic arch is normal, without dilatation, aneurysm or coarctation. The aortic isthmus is normal sized. The aortic isthmus diameter measures 3.4 mm distal to the left subclavian [...] are estimated This report has been electronically signed by: Gloria Fernández MD 07/20/2018 12:42:26 Images reviewed and interpretation verified [facility] Cardiac Ul[facility]ound Laboratory E Rian Hoover MD ECHO ORDERABLES * Spinal Muscular Atrophy (05/22/2018 11:36 AM EDT) Spinal Muscular Atrophy See Scan Report [facility] Comment:Test performed by [facility], [address] [place] [id number] Blood specimen (specimen) 05/22/2018 11:36 AM EDT 05/22/2018 1:02 PM EDT Narrative Resulting Agency Comment Spec In Lab E Rian Hoover MD MOLECULAR ORDERAB LES [facility] [place] [address] documented in this encounter Visit Diagnoses Diagnosis Insulin controlled gestational diabetes mellitus (GDM) in second trimester Encounter of female for testing for genetic disease carrier status for procreative management Testing of female for genetic disease carrier status AMA (advanced maternal age) multigravida 35+, second trimester Insulin controlled gestational diabetes mellitus (GDM) in second trimester documented in this encounter Care Teams Quality Rn Relationship Specialty Start Date End Date None None PCP - General 05/03/18 documented as of this encounter
--- OUTSIDE RECORDS SUMMARY | 2024-08-14 17:52 | XMS_ITS | Encounter Summary ---
Author Organization [facility] [place] [address] Care Team Providers Care Ice Puller Name Role Phone Greg Islas MD Primary Care Provider [phone] Reason for Visit * Reason Onset Date Comments Results 03/24/2016 Encounter Details Date Type Department Care Team (Late st Contact Info) Description 03/24/2016 Telephone Obstetrics [place] [phone] Kemal Cerrato LGC [facility] DR OBSTETRICS & [place] [address] Results Social History Tobacco Use Types Packs/Day Years Used Date Smoking Tobacco: Never Assessed Comments Yes Sex and Gender Information Value Date Recorded Sex Assigned at Not on file Gender Identity Not on file Sexual Orientation Not on file documented as of this encounter Miscellaneous Notes * Telephone Encounter - Kemal Cerrato LGC - 03/24/2016 5:25 PM EDT Genetic Counseling Telephone Note I met with Vonda Taylor on 03/10/2016 due to advanced maternal age. Vonda opted for the [place] Test. Today, I informed her that a result was not obtained because the sample did not meet thresholds for quality supervisor. I offered her a redraw. She would like to come in tomorrow. She willneed to pickle solution maker the test kit at [facility] receptionist desk [address]L. documented in this encounter Plan of Treatment Not on file documented as of this encounter Visit Diagnoses Not on filedocumented in this encounter Care Teams Ice Puller Relationship Specialty Start Date End Date Greg Islas MD [address], [address] [address] PCP - General Family Medicine 03/10/16 05/02/18 documented as of this encounter
--- OUTSIDE RECORDS SUMMARY | 2024-08-14 17:52 | XMS_ITS | Encounter Summary ---
Author Organization [facility] [place] [address] Care Team Providers Care City Distribution Clerk Name Role Phone None Primary Care Provider Unavailabl e Encounter Details Date Type Department Care Team (Late st Contact Info) Description 05/22/2018 8:26 AM EDT - 05/22/2018 11:59 PM EDT Hospital [place] [address] [facility] [address] [place] [address] [place] [address] Elderly multigravida with antepartum condition or complication; Gestational diabetes mellitus (GDM) in second trimester, gestational diabetes method of control unspecified; Maternal obesity syndrome in second trimester Discharge Disposition: Home Social History Tobacco Use Types Packs/Day Years Used Date Smoking Tobacco: Never Smokeless Tobacco: Never Comments Yes Sex and Gender Information Value Date Recorded Sex Assigned at Not on file Gender Identity Not on file Sexual Orientation Not on file documented as of this encounter Medications at Time of Discharge Medication Sig Dispensed Refills Start Date End Date FREESTYLE LITE STRIPSIndications:Insulin controlled gestational diabetes mellitus (GDM) in second trimester 05/18/2018 FREESTYLE LITE METER KitIndications:Insulin controlled gestational diabetes mellitus (GDM) in second trimester 03/09/2018 glyBURIDE (DIABETA) 2.5 mg TabletIndications:Insulin controlled gestational diabetes mellitus (GDM) in second trimester 05/10/2018 FREESTYLE LANCETS 28 gauge MiscIndications:Insulin controlled gestational diabetes mellitus (GDM) in second trimester 03/09/2018 pantoprazole (PROTONIX) 20 mg Tablet, Delayed Release (E.C.)Indications:Insulin controlled gestational diabetes mellitus (GDM) in second trimester 04/27/2018 95-iron ipy-ifsze-iqk ( + DHA) 28 mg iron-800 mcg-200 mg Combo PackIndications:Insulin controlled gestational diabetes mellitus (GDM) in second trimester 02/02/2016 ibuprofen (ADVIL;MOTRIN) 800 mg TabletIndications:Insulin controlled gestational diabetes mellitus (GDM) in second trimester Three times a day 04/05/2013 magnesium oxide (MAG-OX) 400 mg TabletIndications:Insulin controlled gestational diabetes mellitus (GDM) in second trimester Daily 02/08/2016 vitamin B complex vit C no.3 (VITAMIN B COMP AND C NO.3 ORAL)Indications:Insulin controlled gestational diabetes mellitus (GDM) in second trimester Daily 02/08/2016 documented as of this encounter Plan of Treatment Not on file documented as of this encounter Procedures Procedure Name Priority Date/Time Associated Diagnosis Comments US OB DETAILED MORPHOLOGY Routine 05/22/2018 11:05 AM EDT Elderly multigravida with antepartum condition or complication Gestational diabetes mellitus (GDM) in second trimester, gestational diabetes method of control unspecified Maternal obesity syndrome in second trimester documented in this encounter Results * US OB Detailed Morphology (05/22/2018 11:05 AM EDT) Anatomical Region Laterality Modality Pelvis, Abdomen Ultrasound 05/22/2018 10:0 0 AM EDT Impressions 05/22/2018 11:21 AM EDT 2nd Trimester - Detailed Morphology - Summary Single intrauterine with a gestational age of 19w 5d based on LMP ??(01/04/18). Composite age based on the current ultrasound alone is 19w 6d. Current growth parameters are consistent with prior dating indicating normal growth. Amniotic fluid volume is appropriate for gestational age. Detailed anatomic evaluation was performed and no structural abnormalities are noted. Visualization limited due to maternal body habitus (BMI = ??42.12). ? Halima Hoover MD Electronically Signed Final Report ?? 05/22/2018 11:20 am Narrative 05/22/2018 11:21 AM EDT OBSTETRICS REPORT ? (Signed Final 05/22/2018 11:20 am) PATIENT INFO: ID #: ? [id number] ?: ??[birth year] (37 yrs) Name: ? VONDA PATE ?Visit Date: 05/22/2018 10:00 am PERFORMED BY: Performed By: ? Bruna Mae RDMS Attending: ?Halima Hoover MD ??Joanne Referred By: ?SHARMILA WILKINSON Location: ? [place] SERVICE(S) PROVIDED: ??[facility] - Detailed Morphology - [id number] ? [id number] INDICATIONS: ??19 weeks gestation of ?Z3A.19 ??GESTATIONAL DIABETES; AMA; OBESITY OB HISTORY: Blood ?A+ ?Height: ??5'6 ?Weight (lb): 261 ? BMI: ??42.12 Type: EVALUATION: Num Of Fetuses: ? 1 Heart ? 180 Rate(bpm): Cardiac Activity: ?? Observed, normal rhythm Presentation: ? Variable Placenta: ? Anterior P. Cord Insertion: ??Within Normal Limits Amniotic Fluid ZULAY FV: ?Appropriate for gestational age --------- BIOMETRY: --------- BPD: ?41.4 ??mm [...] oz GESTATIONAL AGE: LMP: ? 19w 5d ?Date: ??01/04/18 ? CHERI: ?? 10/11/18 U/S Today: ? 19w 6d ?CHERI: ?? 10/10/18 Best: ?19w 5d ?? Det. By: ??LMP ??(01/04/18) ?CHERI: ?? 10/11/18 TARGETED ANATOMY: Central Nervous System Calvarium/Cranial V.: ??Within Normal Limits Intracranial Melly: ? Within Normal Limits Cavum: ? Visualized Parenchyma: ?Within Normal Limits Lateral Ventricles: ?Within Normal Limits Choroid Plexus: ?Within Normal Limits Cereb./Vermis: ? Within Normal Limits Cisterna Magna: ?Within Normal Limits Midline Falx: ?Within Normal Limits Spine Cervical: ?Visualized Thoracic: ?Visualized Lumbar: ?Visualized Sacral: ?Visualized Shape/Curvature: ? Visualized Head/Neck Face: ?Visualized Lips: ?Within Normal Limits Neck: ?Visualized Nuchal Fold: ? Within Normal Limits Nasal Bone: ?Present Profile: ? Visualized Orbits/Eyes: ? Visualized Mandible: ?Visualized Maxilla: ? Visualized Thorax Thoracic Contour: ?Visualized Lungs: ? Visualized 4 Chamber View: ?4- chamber view margaret Cardiac Motion: ?Normal Rhythm Rt Outflow Tract: ?Visualized Lt Outflow Tract: ?Visualized Aortic Arch: ? Visualized Ductal Arch: ? Visualized SVC: ? Visualized Cardiac [place]: ?Visualized Diaphragm: ? Visualized 3 Vessel View: ? Visualized IVC: ? Visualized Crossing: ?Visualized Abdomen Ventral Wall: ?Visualized Cord Insertion: ?Visualized Situs: ? Normal Stomach: ? Visualized Liver: ? Visualized Lt Kidney: ? Visualized Rt Kidney: ? Visualized Bladder: ? Visualized Bowel: ? Visualized Extremities Lt Humerus: ?Visualized Rt Humerus: ?Visualized Lt Forearm: ?Visualized Rt Forearm: ?Visualized Lt Hand: ? Visualized Rt Hand: ? Visualized Lt Femur: ?Visualized Rt Femur: ?Visualized Lt Lower Leg: ?Visualized Rt Lower Leg: ?Visualized Lt Foot: ? Visualized Rt Foot: ? Visualized Other Umbilical Cord: ?3 vessel cord CERVIX UTERUS ADNEXA: Left Ovary Size(cm) ? 2.3 ??x ?? 1.9 ?x ??1.1 ? Vol(ml): 2.5 Visualized Right Ovary Size(cm) ? 2.8 ??x ?? 1.4 ?x ??1.1 ? Vol(ml): 2.3 Visualized Procedure Note Halima Hoover MD - 05/22/2018 OBSTETRICS REPORT (Signed Final 05/22/2018 11:20 am) PATIENT INFO: ID #: [id number] : [birth year] (37 yrs) Name: VONDA PATE Visit Date: 05/22/2018 10:00 am PERFORMED BY: Performed By: Bruna Mae RDMS Attending: Halima Hoover MD Referred By: SHARMILA WILKINSON Location: [place] SERVICE(S) PROVIDED: [facility] - Detailed Morphology - [id number] INDICATIONS: 19 weeks gestation of Z3A.19 GESTATIONAL DIABETES; AMA; OBESITY OB HISTORY: Blood A+ Height: 5'6 Weight (lb): 261 BMI: 42.12 Type: EVALUATION: Num Of Fetuses: 1 Heart 180 Rate(bpm): Cardiac Activity: Observed, normal rhythm Presentation: Variable Placenta: Anterior P. Cord Insertion: [...] AGE: LMP: 19w 5d Date: 01/04/18 CHERI: 10/11/18 U/S Today: w 6d CHERI: 10/10/18 Best: 19w 5d Det. By: LMP (01/04/18) CHERI: 10/11/18 TARGETED ANATOMY: Central Nervous System Calvarium/Cranial V.: Within Normal Limits Intracranial Melly: Within Normal Limits Cavum: Visualized Parenchyma: Within Normal Limits Lateral Ventricles: Within Normal Limits Choroid Plexus: Within Normal Limits Cereb./Vermis: Within [...] Visualized Ductal Arch: Visualized SVC: Visualized Cardiac [place]: Visualized Diaphragm: Visualized 3 Vessel View: Visualized [...] IMPRESSION 2nd Trimester - Detailed Morphology - Summary Single intrauterine with a gestational age of 19w 5d based on LMP (01/04/18). Composite age based on the current ultrasound alone is 19w 6d. Current growth parameters are consistent with prior dating indicating normal growth. Amniotic fluid volume is appropriate for gestational age. Detailed anatomic evaluation was performed and no structural abnormalities are noted. Visualization limited due to maternal body habitus (BMI = 42.12). Halima Hoover MD Electronically Signed Final Report 05/22/2018 11:20 am Sharmila Wilkinson CNM IMG US OB ORDERABLES documented in this encounter Visit Diagnoses Diagnosis Elderly multigravida with antepartum condition or complication Gestational diabetes mellitus (GDM) in second trimester, gestational diabetes method of control unspecified Maternal obesity syndrome in second trimester documented in this encounter Care Teams City Distribution Clerk Relationship Specialty Start Date End Date None None PCP - General 05/03/18 documented as of this encounter
--- OUTSIDE RECORDS SUMMARY | 2024-08-14 17:52 | XMS_ITS | Encounter Summary ---
Author Organization [facility] [place] [address] Care Team Providers Care Assistant Teacher Primary Name Role Phone None Primary Care Provider Unavailabl e Reason for Visit * Reason Comments Advanced Maternal Age * Consultation (Routine) - Closed Specialty Diagnoses / Procedures Referred By Noreen woods Referred To Contact Obstetrics and Gynecology Diagnoses MATERNAL AGE, OBESITY,GDM Geovanna Casillas, [facility] [address] [place] [address] [facility] [address] [place] [address] Referral ID Status Reason Start Date Expiration Date Visits Re quested Visits Authorized [id number] Closed 04/09/2018 04/09/2019 2 2 Encounter Details Date Type Department Care Team (Late st Contact Info) Description 05/22/2018 9:00 AM EDT Office Visit Obstetrics [place] [phone] Taylor Fox, [facility] [place] OBSTETRICS [place] [address] Encounter of female for testing for genetic disease carrier status for procreative management Social History Tobacco Use Types Packs/Day Years Used Date Smoking Tobacco: Never Smokeless Tobacco: Never Comments Yes Sex and Gender Information Value Date Recorded Sex Assigned at Not on file Gender Identity Not on file Sexual Orientation Not on file documented as of this encounter Progress Notes * Taylor De Souza LGC - 05/22/2018 9:00 AM EDT Genetic Counseling Note Vonda Taylor is a 37 y.o. female currently at 19w5d gestation. She was referred to the Diagnosis Program by Geovanna Casillas CNM. I met with Vonda for a 30 minute genetic counseling visit. She was accompanied [...] have implications for this . Vonda is [place] and [place], and Tobin is Kyrgyz. Consanguinity was denied. Obstetric History T1 L0 SAB0 TAB0 Ectopic0 Multiple0 Live Births0 # Outcome Date GA Lbr Eric/2nd Weight Sex Delivery Anes PTL Lv 2 Current 1 Term 09/30/16 40w1d 3.6 kg (7 lb 15 oz) M Vag-Spont Name: [place] Patient's last menstrual period was 01/04/2018. Estimated Date of Delivery: 10/11/18 based on LMP Completed Screening Test Result ??? Aneuploidy screen - [place] Low probability ?? Spinal muscular atrophy screen Not in record ??? Cystic fibrosis carrier screen Negative ??? Thalassemia screen MCV within normal limits (86.6 fL) Assessment 1.) Maternal age, 40, at CHERI: We reviewed the association between maternal age and chromosomeaneuploidy. We discussed the benefits and limitations of diagnostic testing with amniocentesis, as compared with screening with ultrasound and cell-free DNA screening ([place]). Vonda has low risk [place] results. We discussed the limited scope and screening nature of [place] and that amniocentesis can detect additional chromosomal conditions. Amniocentesis is associated with a ~1 in 300 risk ofmiscarriage. Vnoda declines amniocentesis, but may reconsider if her ultrasound exam today reportsany findings. We discussed the benefits and limitations of ultrasound performed at 18 to 20 weeks. Ultrasound detects half of fetuses with Down syndrome, and would detect the majority of fetuses withtrisomies 13 and 18. [place] does not screen for open neural tube defects. 2.) Spinal muscular atrophy carrier screening: ACOG recommends offering carrier testing to all couples for spinal muscular atrophy (SMA),regardless of ethnicity. SMA has a carrier frequency of approximately 1 in 35 and carrier detection rate of approximately 90 to 95% in Caucasians. Again, a negative carrier result for SMA would reduce, but not eliminate, one's carrier risk. ?? 3.) Lisandro-Sachs carrier screening was offered because Vonda reported [place] ancestry. The disease course and autosomal recessive inheritance were reviewed. Given Tobin is neither [place] nor Ashkenazi Denominational, his carrier risk is quite low, thereby making the risk to the fetus low (atmost 1 in 84,000). Lisandro-Sachs carrier screening was declined. Plan: SMA carrier screening today. Following our visit, Vonda had a morphology ultrasound and maternal- medicine consultation with Dr. Renuka Hoover. Please refer to her note for further details and recommendations. A prior authorization request was submitted today to [employer]/BS [place] for SMA carrier screening. documented in this encounter Plan of Treatment Not on file documented as of this encounter Results * Spinal Muscular Atrophy (05/22/2018 11:36 AM EDT) Spinal Muscular Atrophy See Scan Report [facility] Comment:Test performed by [place] [facility], [address] [place] [id number] Blood specimen (specimen) 05/22/2018 11:36 AM EDT 05/22/2018 1:02 PM EDT Narrative Resulting Agency Comment Spec In Lab E Joanne Hoover MD MOLECULAR ORDERAB LES [facility] [place] [address] documented in this encounter Visit Diagnoses Diagnosis Encounter of female for testing for genetic disease carrier status for procreative management Testing of female for genetic disease carrier status documented in this encounter Care Teams Assistant Teacher Primary Relationship Specialty Start Date End Date None None PCP - General 05/03/18 documented as of this encounter
--- OUTSIDE RECORDS SUMMARY | 2024-08-14 17:52 | XMS_ITS | Encounter Summary ---
Author Organization [facility] [place] [address] Care Team Providers Care Fiscal Officer Name Role Phone None Primary Care Provider Unavailabl e Reason for Visit * Reason Onset Date Comments Results 06/04/2018 Encounter Details Date Type Department Care Team (Late st Contact Info) Description 06/04/2018 Telephone Obstetrics [place] [address] Taylor Fox LGC [facility] DR OBSTETRICS & [place] [address] Results Social History Tobacco Use Types Packs/Day Years Used Date Smoking Tobacco: Never Smokeless Tobacco: Never Comments Yes Sex and Gender Information Value Date Recorded Sex Assigned at Not on file Gender Identity Not on file Sexual Orientation Not on file documented as of this encounter Miscellaneous Notes * Telephone Encounter - Taylor De Souza LGC [...] on filedocumented in this encounter Care Teams Fiscal Officer Relationship Specialty Start Date End Date None None PCP - General 05/03/18 documented as of this encounter
--- OUTSIDE RECORDS SUMMARY | 2024-08-14 17:52 | XMS_ITS | Encounter Summary ---
Author Organization [facility] Address [address] [place] [address] Care Team Providers Care Head Of Acquisitions Name Role Phone Unavailable Primary Care Provider Unavailabl e Encounter Details Date Type Department Care Team (Late st Contact Info) Description 10/20/2011 14:07 EST - 10/20/2011 14:08 EST Hospital Encounter [facility] - [address] [address] Gabriela Tate, LILI [address] [place] [phone] Discharge Disposition: Home or Self Care Social History Tobacco Use Types Packs/Day Years [...]
--- OUTSIDE RECORDS SUMMARY | 2024-08-14 17:52 | XMS_ITS | Encounter Summary ---
Author Organization [facility] Address [address] [place] [address] Care Team Providers Care Perfume Maker Name Role Phone Unknown, Provider Primary Care Provider Unava ilable Encounter Details Date Type Department Care Team (Latest Contact Info) Description 06/02/2022 Lab Requisition [facility] Pathology & Laboratory Medicine - [facility] [address] [place] [address] Gabi Pabon FNP [address] [facility] [address] [place] [phone] Encounter for general adult medical examination without abnormal findings; Encounter for screening for malignant neoplasm of cervix; Encounter for gynecological examination (general) (routine) without abnormal findings Social History Tobacco Use Types Packs/Day Years [...] Procedure Name Priority Date/Time Associated Diagnosis Comments CHLAMYDIA/N. GONORRHOEAE AMPLIFIED NUCLEIC ACID, THINPREP Today 06/01/2022 16:00 EDT PAP TEST Today 06/01/2022 4:00 EDT Encounter for general adult medical examination without abnormal findings Encounter for screening for malignant neoplasm of cervix Encounter for gynecological examination (general) (routine) without abnormal findings HPV DNA DETECTION WITH GENOTYPING, PCR Today 06/01/2022 4:00 EDT Encounter for general adult medical examination without abnormal findings Encounter for screening for malignant neoplasm of cervix Encounter for gynecological examination (general) (routine) without abnormal findings documented in this encounter Results * CHLAMYDIA/N. GONORRHOEAE AMPLIFIED RNA, THINPREP (06/01/2022 16:00 EDT) Neisseria gonorrhoeae Result Negative Negative 06/03/2022 15:11 EDT [facility] Chlamydia trachomatis Result Negative Negative 06/03/2022 15:11 EDT [facility] Papanicolaou smear specimen (specimen) CERVIX UTERI STRUCTURE / Unknown 06/01/2022 16:00 EDT 06/03/2022 9:25 EDT Gabi HARVEYP MICROBIOLOGY - GENERAL ORDERABLE S Final Result Performing Organization Address [facility] Co de Phone Number [facility] [address] [place] [address] * HUMAN PAPILLOMAVIRUS (HPV) DETECTION-HIGH RISK TYPES (06/01/2022 4:00 EDT) HPV other High Risk types, PCR Negative Negative 06/09/2022 8:10 EDT [facility] Comment:No E6 or E7 mRNA is detected from HPV types 16,18,31,33,35,39,45,51,52,56,58,59,66, and 68 by skein drier mediated amplification. Papanicolaou smear specimen (specimen) CERVIX UTERI STRUCTURE / Unknown 06/01/2022 4:00 EDT 06/08/2022 9:35 EDT us Gabi HARVEYP MICROBIOLOGY - GENERAL ORDERABLE S Final Result Performing Organization Address [facility] Co de Phone Number [facility] [address] [place] [address] * PAP TEST (06/01/2022 4:00 EDT) Specimens A. Cervix and/or Endocervix , ThinPrep Imaging System with Manual Evaluation 06/09/2022 8:10 EDT [facility] Specimen Adequacy Satisfactory for Evaluation - transformation zone component present 06/09/2022 8:10 EDT [facility] General Categorization Negative for intraepithelial lesion or malignancy 06/09/2022 8:10 EDT [facility] Descriptive Diagnosis Reactive cellular changes associated with inflammation present 06/09/2022 8:10 T [facility] Attestation By the signature below, the attending physician certifies that they have personally conducted a gross and/or microscopic examination of the described specimens and rendered or confirmed the above diagnosis. 06/09/2022 8:10 EDT [facility] at 0810 Clinical History See below 06/09/20 8:10 EDT [facility] HPV The result for the Human Papillomavirus (HPV) Detection-High Risk Types is Negative. No E6 or E7 mRNA is detected from HPV types 16,18,31,33,35,39 ,45,51,52,56,58,5 9,66, and 68 by skein drier mediated amplification.Marilynn ting was performed on specimen [id number] and was resulted on 06/09/2022 0809 EDT by ADRIANNA, LAB INSTRUMENT RESULTS IN 06/09/2022 8:10 EDT [facility] Performing Lab [facility] 06/09/2022 8:10 T [facility] Scanned Images 06/09/2022 8:10 T [facility] Papanicolaou smear specimen (specimen) CERVIX UTERI STRUCTURE / Unknown 06/01/2022 4:00 EDT 06/03/2022 15:35 EDT Gabi GASTON PATHOLOGY ORDERABLES Final Resul t [facility] [address] [place] [address] documented in this encounter Visit Diagnoses Diagnosis Encounter for general adult medical examination without abnormal findings Unspecified general medical examination Encounter for screening for malignant neoplasm of cervix Screening for malignant neoplasm of the cervix Encounter for gynecological examination (general) (routine) without abnormal findings documented in this encounter Care Teams Perfume Maker Relationship Specialty Start Date End Date Unknown, Provider, PCP - General 10/24/11 documented as of this encounter
--- OUTSIDE RECORDS SUMMARY | 2024-08-14 17:52 | XMS_ITS | Encounter Summary ---
Author Organization [facility] [place] [address] Care Team Providers Care Neuro Urologist Name Role Phone None Primary Care Provider Unavailabl e Encounter Details Date Type Department Care Team (Latest Contact Info) Description 07/20/2018 10:58 AM EDT - 07/20/2018 11:59 PM EDT Hospital Encounter Non-[place] [address] [facility] [address] OBSTETRICS [place] [address] Insulin controlled gestational diabetes mellitus (GDM) in second trimester Discharge Disposition: Home Social [...] mellitus (GDM) in second trimester 04/27/2018 95-iron dmo-mvevy-pav ( + DHA) 28 mg iron-800 mcg-200 [...] Procedure Name Priority Date/Time Associated Diagnosis Comments ECHO COMPLETE Routine 07/20/2018 1 2:09 PM EDT Insulin controlled gestational diabetes mellitus (GDM) in second trimester documented in this encounter Results * ECHO COMPLETE (07/20/2018 12:09 PM EDT) Anatomical Region Laterality Modality Other 07/20/2018 Narrative 07/20/2018 12:42 PM EDT Procedure: ?Pediatric Echocardiogram Patient: ?SCAVITTO VONDA ? (Age): 1980(37y) ? Med Rec#: ? [id number] ?Sex: ?F ? Site Loc: ? [facility] ?Ht / Wt: ??(cm)/ (kg) ? Pt. Loc: ?Echo Lab ? Study Date: ?? 07/20/2018 ?Pt. Type: Study Quality: ? Referring: Halima HOOVER REBECCA Reading: Micki Fernándezifer KikeAlexis ([id number]) Diagnosis: *Gestational diabetes mellitus in , insulin [...] Normal heart rate (142 bpm). Normal mechanical CO interval (116 ms). The heart rhythm was [...] a patent foramen ovale (PFO). ?There is dnajd-hj-vbki shunting across the patent foramen ovale with [...] is a patent ductus arteriosus. ?There is tebea-xh-eyso shunting across the patent ductus arteriosus with [...] 07/20/2018 12:42:26 Images reviewed and interpretation verified [facility] Cardiac Ultrasound Laboratory Procedure Note Gloria Fernández MD - 07/20/2018 Procedure: Pediatric Echocardiogram Patient: HERLINDA SAMSON(Age): 1980(37y) Med Rec#: [id number] Sex: F Site Loc: [facility] Ht / Wt: (cm)/ (kg) Pt. Loc: Echo Lab Study Date: 07/20/2018 Pt. Type: Study Quality: Referring: Halima HOOVER REBECCA Reading: Gloria Fernández ([id number]) Diagnosis: *Gestational diabetes mellitus in , insulin [...] Normal heart rate (142 bpm). Normal mechanical CO interval (116 ms). The heart rhythm was [...] a patent foramen ovale (PFO). There is laluq-pb-vkbh shunting across the patent foramen ovale with [...] is a patent ductus arteriosus. There is obqvc-hx-kdok shunting across the patent ductus arteriosus with [...] 07/20/2018 12:42:26 Images reviewed and interpretation verified [facility] Cardiac Ultrasound Laboratory E Joanne Hoover MD ECHO ORDERABLES documented in this encounter Visit Diagnoses Diagnosis Insulin controlled gestational diabetes mellitus (GDM) in second trimester documented in this encounter Care Teams Neuro Urologist Relationship Specialty Start Date End Date None None PCP - General 05/03/18 documented as of this encounter
--- OUTSIDE RECORDS SUMMARY | 2024-08-14 17:52 | XMS_ITS | Encounter Summary ---
Author Organization [facility] [place] [address] Care Team Providers Care Customer Support Agent Name Role Phone None Primary Care Provider Unavailabl e Reason for Visit * Reason Comments Maternal Condition Encounter Details Date Type Department Care Team ([facility] st Contact Info) Description 07/20/2018 11:00 AM EDT Office Visit Pediatric Cardiology at [facility] [place] [address] Gloria Fernández MD [address] [place] [address] [place] [address] Gestational diabetes mellitus (GDM) in third trimester controlled on oral hypoglycemic drug Social History Tobacco Use Types Packs/Day Years Used Date Smoking Tobacco: Never Smokeless Tobacco: Never Comments Yes Sex and Gender Information Value Date Recorded Sex Assigned at Not on file Gender Identity Not on file Sexual Orientation Not on file documented as of this encounter Progress Notes * Gloria Fernández MD - 07/20/2018 11:00 AM EDT Cardiology Clinic Primary OB provider: Saira Casillas CNM Indication for Evaluation: Patient history: I was asked by to see Vonda Taylor for advice regarding cardiac risk associated with . Vonda is a 37 y.o. female who is currently at 28 1/7 weeks gestation based on an EDC of 10/11/18. She states that she was diagnosed with gestational diabetes at 8 weeks gestation and is currentlymaintained on glyburide. Cell free DNA testing was low risk. She was evaluated by Dr. Hoover at 19 weeks gestation. anatomy appeared normal on ultrasound. She denies any other complications.She plans to deliver at [facility]. Medications: Current Outpatient Medications on File Prior to Visit Medication Sig Dispense Refill ??? FREESTYLE LITE STRIPS ??? FREESTYLE LITE METER Kit ??? glyBURIDE (DIABETA) 2.5 mg Tablet ??? FREESTYLE LANCETS 28 gauge Misc ??? pantoprazole (PROTONIX) 20 mg Tablet, Delayed Release (E.C.) ??? 95-iron ejc-uhnfn-ffh ( + DHA) 28 mg iron-800 mcg-200 [...] history of congenital heart disease, other defects orgenetic syndromes. Social History: to Tobin who is [...] and relayed that I see no evidence of a major structural cardiac abnormality on my imaging [...] of this patient. Please feel free to contact me for any further questions or concerns. Total visit time was 30 minutes with more than 50 percent of the time spent in counseling to discuss normal cardiac anatomy and physiology, review of today's echocardiogram results and review of those findings which can and cannot be prenatally detected as described above. documented in this encounter Plan of Treatment Not on file documented as of this encounter Visit Diagnoses Diagnosis Gestational diabetes mellitus (GDM) in third trimester controlled on oral hypoglycemic drug documented in this encounter Care Teams Customer Support Agent Relationship Specialty Start Date End Date None None PCP - General 05/03/18 documented as of this encounter
--- OUTSIDE RECORDS SUMMARY | 2024-08-14 17:52 | XMS_ITS | Encounter Summary ---
Author Organization [facility] Address [address] [place] [address] Care Team Providers Care Bus Company Manager Name Role Phone Unknown, Provider Primary Care Provider Kylee crespo Encounter Details Date Type Department Care Team (Late st Contact Info) Description 11/15/2016 Results Only [facility] [phone] Doris Rahman [address] [place] [id number] Social History Tobacco Use Types Packs/Day Years [...] Diagnosis Comments PAP TEST- RESULT ONLY Routine 11/15/2016 0:00 EST documented in this encounter Results * PAP TEST- RESULT ONLY (11/15/2016 0:00 EST) Pathology Report: CYTOPATHOLOGY REPORT Reports generated via electronic interface contain original data; however they are lacking the format of the original report. Caution should be taken when reading/interpreti ng unformatted reports. Name: ? VONDA PATE ? Accession #: ? [id number] ? : ? 1980 (Age: 36) ??F ?Collect Date: ? 11/15/2016 ? Location: ? [facility] ? Receive Date: ? 11/16/2016 ? Provider: DORIS RAHMAN CNM Copy to: DARIUS ALFONSO MD ? Final Report SPECIMEN ADEQUACY ? Satisfactory for Evaluation - transformation zone component present GENERAL CATEGORIZATION ? Negative for Intraepithelial Lesion or Malignancy ?? Last Menstrual Period: 12/24/2015 Menstrual/Pregnanc y Status: ??Post Specimen/Source: ??Pap Test, Cervix, ThinPrep Imaging System with manual evaluation Document reviewed and electronically signed by: ? AD Negro(ASCP) ? Report ??Date: 11/21/2016 13:29 HPV with Pap Test ? Date Ordered: ? 11/21/2016 ? Status: ?? Signed Out ?Date Complete: ? 11/22/2016 ? By: ??System Interface ? Date Reported: ? 11/22/2016 ? Interpretation RESULT: Negative for HPV. No E6 or E7 mRNA is detected from HPV types 16,18,31,33,35, 39,45,51,52,56,58, 59,66, and 68 by cleaner and trimmer mediated amplification. Comments Document reviewed and electronically signed by: ? System Interface ? Report date: 11/22/2016 By the signature above, the attending physician certifies that he/she has personally conducted a gross and/or microscopic examination of the described specimens and rendered or confirmed the above diagnosis. End of Report [facility] 11/15/2016 11/16/2016 us Doris Rahman CNM PATHOLOGY ORDERABLES Final Resul t [facility] [address] [place] [address] documented in this encounter Visit Diagnoses Not on filedocumented in this encounter Care Teams Bus Company Manager Relationship Specialty Start Date End Date Unknown, Provider, PCP - General 10/24/11 documented as of this encounter
--- OUTSIDE RECORDS SUMMARY | 2024-08-14 17:52 | XMS_ITS | Encounter Summary ---
Author Organization [facility] [place] [address] Care Team Providers Care Political Reporter Name Role Phone Greg Islas MD Primary Care Provider [phone] Reason for Visit * Reason Comments Advanced Maternal Age [age] years old at ED D * Consultation (Routine) - Closed Specialty Diagnoses / Procedures Referred By Noreen woods Referred To Contact Genetics / Obstetrics and Gynecology Diagnoses MATERNAL AGE Procedures GENETIC CONSULT Geovanna Casillas, [facility] [address] [place] [id number] [facility] [address] [place] [address] Referral ID Status Reason Start Date Expiration Date Visits Re quested Visits Authorized [id number] Closed 02/26/2016 02/25/2017 1 1 Encounter Details Date Type Department Care Team (Late st Contact Info) Description 03/10/2016 12:30 PM EDT Office Visit Obstetrics [place] [phone] Kemal Cerrato, [facility] OBSTETRICS & [place] [address] Maternal age 35+, primigravida, first trimester; Encounter for genetic counseling Social History Tobacco Use Types Packs/Day Years Used Date Smoking Tobacco: Never Assessed Comments Yes Sex and Gender Information Value Date Recorded Sex Assigned at Not on file Gender Identity Not on file Sexual Orientation Not on file documented as of this encounter Progress Notes * Kemal Cerrato, [facility] - 03/10/2016 2:06 PM EDT Genetic Counseling [...] menstrual dating and confirmed by ultrasound (7w2d on 02/17/2016). Assessment 1. Aneuploidy screening: Advancing maternal age is associated with an increased rate of aneuploidy due to chromosome missegregation. At Vonda's current age, the first trimester risks for trisomy 21 (Down syndrome), trisomy 18, and trisomy 13 are about 1 in 200, 1 in 1000, and 1 in 2700, respectively. The risk for XXY (Klinefelter syndrome) or XXX is around 1 in 1000. We discussed the benefits, risks, and limitations of screening and diagnostic testing for aneuploidy. Vonda would like to have a screening test at this time. We are offering the Deeth Test, which is a type of cell- free DNA screening, to women of advanced maternal age. The Deeth Test provides a risk score for trisomy 21, trisomy 18, and trisomy 13; screening for sexchromosome aneuploidy is optional. We discussed the sensitivity and specificity of the test for each condition. Vonda opted for the Deeth Test without sex chromosome aneuploidy screening.She declined to have the sex reported. Results are expected in 1-2 weeks. 2. Neural tube defect screening: We discussed the benefits and limitations of screening for neural tube defects by maternal serum AFP screening, morphology ultrasound, or both. Vonda will givefurther consideration to maternal serum AFP screening. This test may be done locally, ideally at 16-18 weeks. 3. Carrier screening: Vonda is of [place] and [place] ancestry. Tobin is of English and [place] ancestry. We discussed the options of cystic fibrosis and Lisandro-Sachs carrier screening. The cysticfibrosis carrier frequency is about 1 in 25 in the population, which gives this couple a 1 in 2500 risk of having an affected child. The Lisandro-Sachs carrier frequency is about 1 in 73 in the [place] population and about 1 in 300 in the general population, which gives this couple less than a 1 in 87,000 risk of having an affected child. After considering the benefits and limitations, Vonda declined cystic fibrosis and Lisandro-Sachs carrier screening. Vonda's MCV is not available for review. If it is low, further screening for thalassemia should beconsidered. Vonda has a family history of autism spectrum disorder (Asperger). We discussed the benefits and limitations of carrier screening for fragile X syndrome. Vonda declined this test. Plan Vonda will have her blood drawn today for the Deeth Test. I will call her when the results are available. documented in this encounter Plan of Treatment Not on file documented as of this encounter Results * Miscellaneous Lab request (03/10/2016 2:16 PM EDT) Label Request received in lab. [facility] Blood specimen (specimen) 03/10/2016 2:16 PM EDT 03/10/2016 3:01 PM EDT Narrative Resulting Agency Comment Spec In Lab Ember Moran MD LAB SEND OUT ORDER [facility] [address] [place] [address] documented in this encounter Visit Diagnoses Diagnosis Maternal age 35+, primigravida, first trimester Encounter for genetic counseling Genetic counseling documented in this encounter Care Teams Political Reporter Relationship Specialty Start Date End Date Greg Islas MD [address] [facility] [address] [place] [address] PCP - General Family Medicine 03/10/16 05/02/18 documented as of this encounter
--- OUTSIDE RECORDS SUMMARY | 2024-08-14 17:52 | XMS_ITS | Encounter Summary ---
Author Organization [facility] [place] [address] Care Team Providers Care Teleprinter Installer Name Role Phone Greg Islas MD Primary Care Provider [phone] Reason for Visit * Reason Onset Date Comments Results 03/30/2016 [place] Encounter Details Date Type Department Care Team (Late st Contact Info) Description 03/30/2016 Telephone Obstetrics [place] [phone] [facility] [place] [address] Results ([employer]) Social History Tobacco Use Types Packs/Day Years Used Date Smoking Tobacco: Never Assessed Comments Yes Sex and Gender Information Value Date Recorded Sex Assigned at Not on file Gender Identity Not on file Sexual Orientation Not on file documented as of this encounter Miscellaneous Notes * Telephone Encounter - Evelina [place]age, [place] - 03/30/2016 2:38 PM EDT Vonda was informed of the following are the results from her [place] test. This is a non-invasive test for aneuploidy that analyzes cell- free DNA in maternal blood. Based on a riskcut-off of 1/100 (1%), the detection rate for [...] on filedocumented in this encounter Care Teams Teleprinter Installer Relationship Specialty Start Date End Date Greg Islas MD [address], [place] [address] PCP - General Family Medicine 03/10/16 05/02/18 documented as of this encounter
--- OUTSIDE RECORDS SUMMARY | 2024-08-14 17:52 | XMS_ITS | Encounter Summary ---
[place] [address] Care Team Providers Care Spring Repairer Helper Hand Name Role Phone Greg Islas MD Primary Care Provider [phone] Encounter Details Date Type Department Care Team (Latest Contact Info) Description 03/10/2016 2:05 PM EDT Laboratory Appointment Lab [address] [place] [phone] Maternal age 35+, primigravida, first trimester Social [...] Associated Diagnosis Comments MISCELLANEOUS LAB REQUEST Routine 03/10/2016 2:16 PM EDT Maternal age 35+, primigravida, first trimester documented in this encounter Results * Miscellaneous Lab request (03/10/2016 2:16 PM EDT) Label Request received in lab. [facility] Blood specimen (specimen) 03/10/2016 2:16 PM EDT 03/10/2016 3:01 PM EDT Narrative Resulting Agency Comment Spec In Lab Ember Moran MD LAB SEND OUT ORDER [facility] [address] documented in this encounter Visit Diagnoses Diagnosis Maternal age 35+, primigravida, first trimester documented in this encounter Care Teams Spring Repairer Helper Hand Relationship Specialty Start Date End Date Greg Islas MD [address], [facility] [address] [place] [address] PCP - General Family Medicine 03/10/16 05/02/18 documented as of this encounter
== END 2024-08-14 17:51 | disposition home or self-care (01) ==
LOC: NCHCN 17:50
PROVIDERS: PCP Internal Medicine Sleep Medicine; Visit Provider Nurse Practitioner Family
DX: Z00.00 Encounter for general adult medical examination without abnormal findings (principal)
CPT/HCPCS: 80053; 80061; 85027

== ENCOUNTER 2024-08-22 02:15 | Outpatient (CLI) | payer BC, SELFPAY ==
--- NOTE | 2024-08-22 10:42 | DI.MAMMO_ITS ---
Exam(s) MG MAMMO SCREEN CALL BACK UNI US BREAST LT LIMITED EXAM: MAMMO SCREEN CALL BACK UNI CLINICAL HISTORY: 1 cm partially obscured nodular density, outer upper quadrant, lt breast. TECHNIQUE: Craniocaudal and mediolateral oblique spot compression digital Mammography views of the l eft breast followed by Tomosynthesis and left breast ultrasound. COMPARISON: [facility] MAMMO SCREENING from 08/12/2024 FINDINGS: Mammography/Tomosynthesis: Masses/Architectural Distortion: None seen. Microcalcifictions: No suspicious pleomorphic-type are seen. Skin Thickening/Nipple Retraction: None. Left breast US: Echotexture: Normal appearance of the glandular tissue. Shadowing: No suspicious foci. Cyst: None. Solid lesions: None seen. Ductal dilation: None. IMPRESSION: 1. No evidence of malignancy is noted. 2. Unless there is more urgent need, follow-up screening mammography is recommended, as per [place] [employer] guidelines. 3. The findings were discussed with the patient on the date of the examination. BI-RADS Category 1 - Negative Breast Density - Category B - Scattered areas of fibroglandular density A mammogram that demonstrates density of C or D indicates the patient's breast tissue is dense. Dense breast tissue is very common and is not abnormal, but dense breast tissue can make it harder to find cancer on a mammogram. Also, dense breast tissue may increase their breast cancer risk. This informa tion about the result of the mammogram report was provided to the patient to raise their awareness. U se this report when you speak with the patient about their risks for breast cancer, which includes th eir family history. At that time, you may recommend for more screening tests (Ultrasound or MRI) as t hey might be useful based on their risk. A negative radiographic report should not delay biopsy if a dominant or clinically suspicious mass is present. Up to ten percent of cancers are not identified on mammography. A negative report may reinforce clinical impression. Adenosis and dense breasts may obscure an underlying neoplasm. False positive reports average 6 to 10%. Patient will receive a letter notifying them of these results.
== END 2024-08-22 02:35 ==
LOC: DI 02:15
PROVIDERS: PCP Internal Medicine Sleep Medicine; Visit Provider Nurse Practitioner Family
DX: Z12.31 Encounter for screening mammogram for malignant neoplasm of breast (principal); R92.323 Mammographic fibroglandular density, bilateral breasts
CPT/HCPCS: 76642; 77063; 77067

== ENCOUNTER 2024-10-14 19:27 | Outpatient (REF) | payer OTHER, SELFPAY ==
[2024-10-14 21:44] LABS: Hemoglobin A1C 5.2 % (<5.7)
== END 2024-10-14 19:28 | disposition home or self-care (01) ==
LOC: NCHCN 19:27
PROVIDERS: PCP Internal Medicine Sleep Medicine; Visit Provider Nurse Practitioner Family
DX: E66.9 Obesity, unspecified (principal)
CPT/HCPCS: 83036